=== PATIENT | female | born 1935 | race Caucasian/White ===

== ENCOUNTER 2016-10-21 15:09 | Emergency (ER) | payer MEDICARE, BC ==
[~2016-10-21] VITALS: Ht 157.5 cm; Wt 79.8 kg
[~2016-10-21 15:09] MED LIST: DICL50TA9 PO; GABA800T2 PO; HYDR1TAB PO; LORA1TAB82 PO
[2016-10-21 15:29] LABS: BASOPHILS % (AUTO) 0.4 % (0.0-2.0); DIFF TOTAL % 100 %; EOSINOPHILS # (AUTO) 0.2 /CMM (0.0-0.7); EOSINOPHILS % (AUTO) 1.9 % (0.0-6.0); HEMATOCRIT 39 % (33-45); LYMPHOCYTES # (AUTO) 2.5 /CMM (0.8-4.8); LYMPHOCYTES % (AUTO) 31.6 % (20.0-44.0); MEAN CORPUSCULAR HEMOGLOBIN 30 PG (26.0-33.0); MEAN CORPUSCULAR HGB CONC 33 g/dl (31.0-36.0); MEAN CORPUSCULAR VOLUME 91 fL (82-100); MONOCYTES # (AUTO) 0.6 /CMM (0.1-1.30); MONOCYTES % (AUTO) 7.2 % (2.0-12.0); NEUTROPHILS # (AUTO) 4.6 /CMM (1.8-8.9); NEUTROPHILS % (AUTO) 58.9 % (43.0-81.0); PLATELET COUNT (AUTO) 131 /CMM (150-450); RED BLOOD CELL COUNT(AUTO) 4.34 MIL/uL (4.0-5.2); WHITE BLOOD COUNT (AUTO) 7.9 K/uL (4.3-11.0)
[2016-10-21] MEDS ORDERED: ASPIRIN 81 MG TAB.CHEW PO ONE (15:30)
[2016-10-21] MEDS ORDERED: ASPIRIN 81 MG TAB.CHEW ONE (15:30)
[2016-10-21 15:40] LABS: ANION GAP 13 (5-14); CALCIUM, SERUM 8.9 mg/dL (8.5-10.1); CARBON DIOXIDE 30 mmol/L (21-32); CHLORIDE 103 mmol/L (98-107); CREATININE 0.7 mg/dL (0.6-1.3); GLUCOSE 136 mg/dL (74-106); POTASSIUM 4.4 mmol/L (3.5-5.1); SODIUM SERUM 141 mmol/L (136-145); UREA NITROGEN, BLOOD 13 mg/dL (7-18)
[2016-10-21 15:49] LABS: TROPONIN I < 0.017 ng/mL (0.00-0.056)
[2016-10-21 16:07] LABS: INR 0.99 (0.87-1.13); PROTHROMBIN TIME 10.4 SECS (9.5-12.7)
[2016-10-21 16:34] VITALS: BP 142/81
== END 2016-10-21 16:34 | disposition home or self-care (01) ==
LOC: ER 15:14
DX: J18.9 Pneumonia, unspecified organism (principal); I10 Essential (primary) hypertension; E11.9 Type 2 diabetes mellitus without complications; F41.9 Anxiety disorder, unspecified; M85.80 Other specified disorders of bone density and structure, unspecified site
CPT/HCPCS: 36415; 71010; 80048; 84484; 85025; 85730; 93005 ×2; 99285; A4606; Z7610

== ENCOUNTER 2016-12-12 11:22 | Emergency (ER) | payer MEDICARE, BC ==
[~2016-12-12] VITALS: Ht 124.5 cm; Wt 71.7 kg
[2016-12-12] MEDS ORDERED: IPRATROPIUM NEB FS 0.5 MG/2.5 ML AMPUL.NEB ONE (12:12)
[2016-12-12] MEDS ORDERED: ALBUTEROL FS 2.5 MG/3 ML VIAL.NEB ONE ×2 (12:12→14:39)
[2016-12-12 12:23] LABS: BASOPHILS % (AUTO) 0.3 % (0.0-2.0); DIFF TOTAL % 100 %; EOSINOPHILS # (AUTO) 0.1 /CMM (0.0-0.7); EOSINOPHILS % (AUTO) 1.8 % (0.0-6.0); HEMATOCRIT 40 % (33-45); HEMOGLOBIN 13.1 g/dL (11.5-14.8); LYMPHOCYTES # (AUTO) 1.8 /CMM (0.8-4.8); LYMPHOCYTES % (AUTO) 31.6 % (20.0-44.0); MEAN CORPUSCULAR HEMOGLOBIN 29 PG (26.0-33.0); MEAN CORPUSCULAR HGB CONC 33 g/dl (31.0-36.0); MEAN CORPUSCULAR VOLUME 88 fL (82-100); MONOCYTES # (AUTO) 0.7 /CMM (0.1-1.30); MONOCYTES % (AUTO) 11.5 % (2.0-12.0); NEUTROPHILS # (AUTO) 3.2 /CMM (1.8-8.9); NEUTROPHILS % (AUTO) 54.8 % (43.0-81.0); PLATELET COUNT (AUTO) 117 /CMM (150-450); RED BLOOD CELL COUNT(AUTO) 4.54 MIL/uL (4.0-5.2); WHITE BLOOD COUNT (AUTO) 5.8 K/uL (4.3-11.0)
[2016-12-12] MEDS ORDERED: ALBUTEROL FS 2.5 MG/3 ML VIAL.NEB CONTNEB ONE (12:30)
[2016-12-12] MEDS ORDERED: IPRATROPIUM NEB FS 0.5 MG/2.5 ML AMPUL.NEB NEB ONE (12:30)
[2016-12-12 12:31] LABS: ANION GAP 13 (5-14); CALCIUM, SERUM 8.7 mg/dL (8.5-10.1); CARBON DIOXIDE 28 mmol/L (21-32); CHLORIDE 102 mmol/L (98-107); CREATININE 0.7 mg/dL (0.6-1.3); GLUCOSE 144 mg/dL (74-106); POTASSIUM 4.1 mmol/L (3.5-5.1); SODIUM SERUM 138 mmol/L (136-145); UREA NITROGEN, BLOOD 11 mg/dL (7-18)
[2016-12-12 12:39] LABS: TROPONIN I < 0.017 ng/mL (0.00-0.056)
[2016-12-12 12:43] LABS: ALANINE AMINOTRANSFERASE 33 U/L (12-78); ALBUMIN 3.9 g/dL (3.4-5.0); ASPARTATE AMINOTRANSFERASE 45 U/L (15-37); BILIRUBIN,DIRECT 0.1 mg/dL (0.0-0.2); BILIRUBIN,TOTAL 0.5 mg/dL (0.2-1.0); INDIRECT BILIRUBIN 0.4 mg/dL (0.0-1.1); TOTAL PROTEIN, SERUM 7.9 g/dL (6.4-8.2)
[2016-12-12 13:19] LABS: LACTIC ACID 1.5 mmol/L (0.4-2.0)
[2016-12-12] MEDS ORDERED: methylPREDNISolone SOD SUCC 125 MG/2ML VIAL ONE (14:26)
[2016-12-12] MEDS ORDERED: methylPREDNISolone SOD SUCC 125 MG/2ML VIAL IV ONE (14:30)
[2016-12-12] MEDS ORDERED: ALBUTEROL FS 2.5 MG/3 ML VIAL.NEB NEB ONE (14:30)
[2016-12-12 15:43] VITALS: BP 143/71
== END 2016-12-12 15:45 | disposition home or self-care (01) ==
LOC: ER 11:24
DX: J06.9 Acute upper respiratory infection, unspecified (principal); M19.90 Unspecified osteoarthritis, unspecified site; E11.9 Type 2 diabetes mellitus without complications; F41.9 Anxiety disorder, unspecified; Z95.5 Presence of coronary angioplasty implant and graft; Z99.3 Dependence on wheelchair
CPT/HCPCS: 36415; 71010; 80048; 80076; 83605; 83880; 84484; 85025; 87040 ×2; 87804; 93005; 94640 ×2; 96374; 99285; A4606; J2930; 87400; Z7610

== ENCOUNTER 2016-12-23 17:52 | Emergency (ER) | payer MEDICARE, BC ==
[~2016-12-23] VITALS: Ht 162.6 cm; Wt 68.0 kg
--- NOTE | 2016-12-23 18:20 | NUR ---
bib son for cough and congestion for 1 week, no cp, no respiratory distress, able to ambulate to bed, placed on monitor, will continue to monitor closely .
[2016-12-23 18:29] LABS: BASOPHILS # (AUTO) 0.1 /CMM (0.0-0.2); BASOPHILS % (AUTO) 0.7 % (0.0-2.0); EOSINOPHILS # (AUTO) 0.1 /CMM (0.0-0.7); EOSINOPHILS % (AUTO) 1.2 % (0.0-6.0); HEMATOCRIT 39 % (33-45); LYMPHOCYTES # (AUTO) 2.9 /CMM (0.8-4.8); LYMPHOCYTES % (AUTO) 33.2 % (20.0-44.0); MEAN CORPUSCULAR HEMOGLOBIN 30 PG (26.0-33.0); MEAN CORPUSCULAR HGB CONC 34 g/dl (31.0-36.0); MEAN CORPUSCULAR VOLUME 88 fL (82-100); MONOCYTES # (AUTO) 0.8 /CMM (0.1-1.30); MONOCYTES % (AUTO) 9.6 % (2.0-12.0); NEUTROPHILS # (AUTO) 4.9 /CMM (1.8-8.9); NEUTROPHILS % (AUTO) 55.3 % (43.0-81.0); PLATELET COUNT (AUTO) 142 /CMM (150-450); RDW COEFFICIENT OF VARIATION 13.3 (11.5-15.0); WHITE BLOOD COUNT (AUTO) 8.8 K/uL (4.3-11.0)
[2016-12-23 18:40] LABS: CALCIUM, SERUM 8.4 mg/dL (8.5-10.1); CARBON DIOXIDE 27 mmol/L (21-32); CHLORIDE 105 mmol/L (98-107); CREATININE 0.7 mg/dL (0.6-1.3); GLUCOSE 186 mg/dL (74-106); POTASSIUM 3.9 mmol/L (3.5-5.1); SODIUM SERUM 139 mmol/L (136-145); UREA NITROGEN, BLOOD 11 mg/dL (7-18)
[2016-12-23 18:44] LABS: INR 0.98 (0.87-1.13); PROTHROMBIN TIME 10.2 SECS (9.5-12.7)
[2016-12-23 18:49] LABS: TROPONIN I < 0.017 ng/mL (0.00-0.056)
[2016-12-23 18:56] LABS: ALANINE AMINOTRANSFERASE 26 U/L (12-78); ALBUMIN 3.5 g/dL (3.4-5.0); ALKALINE PHOSPHATASE 119 U/L (46-116); ASPARTATE AMINOTRANSFERASE 28 U/L (15-37); B-TYPE NATRIURETIC PEPTIDE 150 PG/ML (0-125); BILIRUBIN,DIRECT 0.1 mg/dL (0.0-0.2); BILIRUBIN,TOTAL 0.2 mg/dL (0.2-1.0); TOTAL PROTEIN, SERUM 7.3 g/dL (6.4-8.2)
[2016-12-23 18:59] LABS: LACTIC ACID 1.3 mmol/L (0.4-2.0)
--- NOTE | 2016-12-23 19:17 | NUR ---
Assumed care of pt. pt sitting up in bed w/ resp even & unlabored, nad noted. On continuous cardiac monitoring. Awaiting CT.
[2016-12-23] MEDS ORDERED: IV NS 0.9% 250 ML IV ONE (19:44)
[2016-12-23] MEDS ORDERED: IOHEXOL-350 100 ML VIAL IV ONE (19:44)
--- NOTE | 2016-12-23 19:57 | NUR ---
pt sent to CT.
--- NOTE | 2016-12-23 20:09 | NUR ---
pt back fr CT.
--- NOTE | 2016-12-23 20:46 | NUR ---
pt elevated bp, resp even & unlabored, denies any pain w/ nad noted. Dr. Patterson aware of elevated BP, at bedside for update on pt status.
[2016-12-23 20:47] VITALS: BP 172/79
--- NOTE | 2016-12-23 20:56 | NUR ---
IV removed. Catheter intact and site benign. Pressure and 4x4 applied to site. No bleeding noted.Patient discharged to home in stable condition. Written and verbal after care instructions given. Patient verbalizes understanding of instruction.
== END 2016-12-23 20:57 | disposition home or self-care (01) ==
LOC: ER 17:55
DX: I51.7 Cardiomegaly (principal); E11.9 Type 2 diabetes mellitus without complications; F41.9 Anxiety disorder, unspecified
CPT/HCPCS: 36415; 71010; 71275; 80048; 80076; 83605; 83880; 84484; 85025; 85730; 87040 ×2; 87804; 93005; 99285; A4606; J7050; Q9967; 87400; Z7610

== ENCOUNTER 2017-02-19 08:33 | Emergency (ER) | payer MEDICARE, BC ==
[~2017-02-19] VITALS: Ht 154.9 cm; Wt 68.0 kg
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
--- NOTE | 2017-02-19 08:37 | NUR ---
radiology called for finger x-ray
[2017-02-19] MEDS ORDERED: LIDOCAINE HCL/PF 1% 30 ML SDV ONE (08:39)
[2017-02-19] MEDS ORDERED: MORPHINE SULFATE INJ 4 MG/ML DISP.SYRIN ONE (08:39)
--- NOTE | 2017-02-19 08:49 | NUR ---
ALISTAIR AT BS.
[2017-02-19] MEDS ORDERED: TDAP [DIPH/PERTUSSIS/TET] 0.5 ML VIAL IM ONE ×2 (08:52→09:00)
[2017-02-19] MEDS ORDERED: IV SET PRIMARY PUMP SET 1 EA INFUS.SET MC ONE (08:52)
[2017-02-19] MEDS ORDERED: MORPHINE SULFATE INJ 2 MG/ML DISP.SYRIN IM ONE (09:00)
[2017-02-19] MEDS ORDERED: CEFAZOLIN 2 GM in IV D5W 50 ML IV ONE (09:00)
[2017-02-19] MEDS ORDERED: CEFAZOLIN 2 GM in IV D5W 50 ML IV SCH (09:00)
[2017-02-19] MEDS ORDERED: HYDROCODONE/APAP 5/325MG 1 EACH TABLET ONE (09:27)
[2017-02-19] MEDS ORDERED: HYDROCODONE/APAP 5/325MG 1 EACH TABLET PO ONE (10:00)
--- NOTE | 2017-02-19 10:11 | NUR ---
IV removed. Catheter intact and site benign. Pressure and 4x4 applied to site. No bleeding noted.
--- NOTE | 2017-02-19 10:11 | NUR ---
Patient discharged to home in stable condition. Written and verbal after care instructions given. Patient verbalizes understanding of instruction.
[2017-02-19 10:12] VITALS: BP 107/88
== END 2017-02-19 10:12 | disposition home or self-care (01) ==
LOC: ER 08:35
DX: S68.122A Partial traumatic metacarpophalangeal amputation of right middle finger, initial encounter (principal); S62.632A Displaced fracture of distal phalanx of right middle finger, initial encounter for closed fracture; E11.9 Type 2 diabetes mellitus without complications; M19.90 Unspecified osteoarthritis, unspecified site; F41.9 Anxiety disorder, unspecified; Z96.652 Presence of left artificial knee joint; Z99.3 Dependence on wheelchair; Z95.818 Presence of other cardiac implants and grafts; W22.8XXA Striking against or struck by other objects, initial encounter; Y93.89 Activity, other specified; Y92.89 Other specified places as the place of occurrence of the external cause; Y99.8 Other external cause status
CPT/HCPCS: 73130-TC; 90715; A4606; A6403; J0690; J2270; J3490; J7060; Z7610

== ENCOUNTER 2017-02-23 13:41 | Outpatient (CLI) | payer MEDICARE, BC | END 2017-02-23 23:59 | disposition home or self-care (01) | LOC: WOU 13:41 | PROVIDERS: ATTEND Surgery | DX: S68.120D Partial traumatic metacarpophalangeal amputation of right index finger, subsequent encounter (principal); S62.630D Displaced fracture of distal phalanx of right index finger, subsequent encounter for fracture with routine healing; W23.0XXD Caught, crushed, jammed, or pinched between moving objects, subsequent encounter; E11.9 Type 2 diabetes mellitus without complications | CPT/HCPCS: A6402; G0463 ==

== ENCOUNTER 2017-03-02 13:40 | Outpatient (CLI) | payer MEDICARE, BC | END 2017-03-02 23:59 | disposition home health service (06) | LOC: WOU 13:40 | PROVIDERS: ATTEND Surgery | DX: S68.120D Partial traumatic metacarpophalangeal amputation of right index finger, subsequent encounter (principal); S62.630D Displaced fracture of distal phalanx of right index finger, subsequent encounter for fracture with routine healing; W23.0XXD Caught, crushed, jammed, or pinched between moving objects, subsequent encounter; E11.9 Type 2 diabetes mellitus without complications; I96 Gangrene, not elsewhere classified | CPT/HCPCS: 11042; A6402 ×2 ==

== ENCOUNTER 2017-03-09 13:41 | Outpatient (CLI) | payer MEDICARE, BC | END 2017-03-09 23:59 | disposition home health service (06) | LOC: WOU 13:41 | PROVIDERS: ATTEND Surgery | DX: S68.120D Partial traumatic metacarpophalangeal amputation of right index finger, subsequent encounter (principal); S62.630D Displaced fracture of distal phalanx of right index finger, subsequent encounter for fracture with routine healing; W23.0XXD Caught, crushed, jammed, or pinched between moving objects, subsequent encounter; E11.9 Type 2 diabetes mellitus without complications; Z79.4 Long term (current) use of insulin | CPT/HCPCS: A6402; G0463 ==

== ENCOUNTER 2017-03-20 12:50 | Outpatient (CLI) | payer MEDICARE, BC | END 2017-03-20 23:59 | disposition home health service (06) | LOC: WOU 12:50 | PROVIDERS: ATTEND Surgery | DX: S68.120D Partial traumatic metacarpophalangeal amputation of right index finger, subsequent encounter (principal); S62.630D Displaced fracture of distal phalanx of right index finger, subsequent encounter for fracture with routine healing; W23.0XXD Caught, crushed, jammed, or pinched between moving objects, subsequent encounter; E08.40 Diabetes mellitus due to underlying condition with diabetic neuropathy, unspecified; I00-I99 Diseases of the circulatory system; M21.611 Bunion of right foot; M21.612 Bunion of left foot; M20.41 Other hammer toe(s) (acquired), right foot; M20.42 Other hammer toe(s) (acquired), left foot; L84 Corns and callosities; Z96.652 Presence of left artificial knee joint; Z79.4 Long term (current) use of insulin | CPT/HCPCS: A6402; G0463 ==

== ENCOUNTER 2017-03-27 12:28 | Outpatient (CLI) | payer MEDICARE, BC | END 2017-03-27 23:59 | disposition home health service (06) | LOC: WOU 12:28 | PROVIDERS: ATTEND Surgery | DX: M79.605 Pain in left leg (principal); M79.604 Pain in right leg; S68.120D Partial traumatic metacarpophalangeal amputation of right index finger, subsequent encounter; S62.630D Displaced fracture of distal phalanx of right index finger, subsequent encounter for fracture with routine healing; W23.0XXD Caught, crushed, jammed, or pinched between moving objects, subsequent encounter; Z96.652 Presence of left artificial knee joint; E11.9 Type 2 diabetes mellitus without complications; Z95.5 Presence of coronary angioplasty implant and graft | CPT/HCPCS: A6402; G0463 ==

== ENCOUNTER 2017-04-10 12:30 | Outpatient (CLI) | payer MEDICARE, BC | END 2017-04-10 23:59 | disposition home or self-care (01) | LOC: WOU 12:30 | PROVIDERS: ATTEND Surgery | DX: S68.120D Partial traumatic metacarpophalangeal amputation of right index finger, subsequent encounter (principal); W23.0XXD Caught, crushed, jammed, or pinched between moving objects, subsequent encounter; Z96.652 Presence of left artificial knee joint; E11.9 Type 2 diabetes mellitus without complications; Z95.5 Presence of coronary angioplasty implant and graft; M79.671 Pain in right foot | CPT/HCPCS: G0463 ==

== ENCOUNTER 2017-05-23 19:39 | Emergency (ER) | payer MEDICARE, BC ==
[~2017-05-23] VITALS: Ht 144.8 cm; Wt 77.1 kg
[2017-05-23 20:05] VITALS: BP 126/86
--- NOTE | 2017-05-23 20:20 | NUR ---
DR WHITE AT BEDSIDE FOR EVAL.
[2017-05-23] MEDS ORDERED: ACETAMINOPHEN ES 500 MG TABLET PO ONE (20:30)
[2017-05-23] MEDS ORDERED: ACETAMINOPHEN ES 500 MG TABLET ONE (20:38)
== END 2017-05-23 21:21 | disposition home or self-care (01) ==
LOC: ER 19:44
DX: M54.41 Lumbago with sciatica, right side (principal); G89.29 Other chronic pain; F41.9 Anxiety disorder, unspecified; E11.42 Type 2 diabetes mellitus with diabetic polyneuropathy; M19.90 Unspecified osteoarthritis, unspecified site; Z99.3 Dependence on wheelchair; Z98.890 Other specified postprocedural states; Z96.652 Presence of left artificial knee joint
CPT/HCPCS: A4606; Z7610

== ENCOUNTER 2017-09-07 17:43 | Emergency (ER) | payer MEDICARE, BC ==
[~2017-09-07] VITALS: Ht 154.9 cm; Wt 74.8 kg
--- NOTE | 2017-09-07 17:43 | NUR ---
RBIB SON DT RIGHT UPPER ARM BRUISE TO UNKNOWN ETIOLOGY NOTICED YESTERDAY. VSS.
[2017-09-07 18:40] LABS: BASOPHILS # (AUTO) 0.1 /CMM (0.0-0.2); BASOPHILS % (AUTO) 0.6 % (0.0-2.0); EOSINOPHILS # (AUTO) 0.1 /CMM (0.0-0.7); EOSINOPHILS % (AUTO) 1.5 % (0.0-6.0); HEMATOCRIT 39 % (33-45); HEMOGLOBIN 13.2 g/dL (11.5-14.8); LYMPHOCYTES # (AUTO) 2.9 /CMM (0.8-4.8); LYMPHOCYTES % (AUTO) 29.1 % (20.0-44.0); MEAN CORPUSCULAR HEMOGLOBIN 31 PG (26.0-33.0); MEAN CORPUSCULAR HGB CONC 34 g/dl (31.0-36.0); MEAN CORPUSCULAR VOLUME 91 fL (82-100); MONOCYTES # (AUTO) 0.7 /CMM (0.1-1.30); MONOCYTES % (AUTO) 7.3 % (2.0-12.0); NEUTROPHILS # (AUTO) 6.1 /CMM (1.8-8.9); NEUTROPHILS % (AUTO) 61.5 % (43.0-81.0); PLATELET COUNT (AUTO) 148 /CMM (150-450); RDW COEFFICIENT OF VARIATION 13.2 (11.5-15.0); WHITE BLOOD COUNT (AUTO) 9.9 K/uL (4.3-11.0)
[2017-09-07 18:49] LABS: CALCIUM, SERUM 8.9 mg/dL (8.5-10.1); CARBON DIOXIDE 28 mmol/L (21-32); CHLORIDE 104 mmol/L (98-107); CREATININE 0.8 mg/dL (0.6-1.3); GLUCOSE 156 mg/dL (74-106); POTASSIUM 4.2 mmol/L (3.5-5.1); SODIUM SERUM 142 mmol/L (136-145); UREA NITROGEN, BLOOD 17 mg/dL (7-18)
[2017-09-07 18:52] LABS: INR 0.97 (0.87-1.13); PROTHROMBIN TIME 10.1 SECS (9.5-12.7)
[2017-09-07 18:55] LABS: CREATINE KINASE, TOTAL 90 U/L (26-192)
--- NOTE | 2017-09-07 18:58 | NUR ---
REPORT GIVEN TO NENA FOR MIKEY
--- NOTE | 2017-09-07 19:00 | NUR ---
PT REQUESTED A BLANKET AND A PILLOW. PT REC'D BOTH.
--- NOTE | 2017-09-07 19:35 | NUR ---
PT ASKED IF SHE COULD TAKE HER HOME MEDICATION (2MG ATIVAN) IT WAS DUE. DR. RICO OK'D PT TAKING HER MEDICATION.
--- NOTE | 2017-09-07 19:45 | NUR ---
US IS AT THE BEDSIDE.
--- NOTE | 2017-09-07 20:13 | NUR ---
Patient discharged to home in stable condition. Written and verbal after care instructions given. Patient verbalizes understanding of instruction. PT'S SON IS TAKING PT HOME. VSS. PT LEFT VIA WC.
[2017-09-07 20:14] VITALS: BP 126/81
== END 2017-09-07 20:15 | disposition home or self-care (01) ==
LOC: ER 17:47
DX: S40.021A Contusion of right upper arm, initial encounter (principal); E11.9 Type 2 diabetes mellitus without complications; F41.9 Anxiety disorder, unspecified; M19.90 Unspecified osteoarthritis, unspecified site; Z96.652 Presence of left artificial knee joint; Z99.3 Dependence on wheelchair; X58.XXXA Exposure to other specified factors, initial encounter; Y93.89 Activity, other specified; Y92.89 Other specified places as the place of occurrence of the external cause; Y99.8 Other external cause status
CPT/HCPCS: 36415; 73060; 80048; 82550; 85025; 85730; 93971; 99285; A4606; Z7610

== ENCOUNTER 2017-09-18 16:42 | Emergency (ER) | payer MEDICARE, BC ==
[~2017-09-18] VITALS: Ht 162.6 cm; Wt 80.7 kg
[~2017-09-18 16:42] MED LIST changes: +LORA-259 PO; -LORA1TAB82 PO
--- NOTE | 2017-09-18 17:15 | NUR ---
PT CAME IN WITH C/O BODY PAIN AND WEAKNESS. SEEN BY MD FOR EVAL. VSS. AFEBRILE. FAMILY MEMBER AT BS. SAFETY AND COMFORT MEASURES PROVIDED. WILL MONITOR.
--- NOTE | 2017-09-18 17:30 | NUR ---
[employer] AT FOR BLOOD DRAW.
--- NOTE | 2017-09-18 17:40 | NUR ---
ALISTAIR AT BS.
[2017-09-18 17:41] LABS: BASOPHILS % (AUTO) 0.2 % (0.0-2.0); EOSINOPHILS # (AUTO) 0.1 /CMM (0.0-0.7); EOSINOPHILS % (AUTO) 1.3 % (0.0-6.0); HEMATOCRIT 39 % (33-45); HEMOGLOBIN 12.6 g/dL (11.5-14.8); LYMPHOCYTES # (AUTO) 1.5 /CMM (0.8-4.8); LYMPHOCYTES % (AUTO) 20.4 % (20.0-44.0); MEAN CORPUSCULAR HEMOGLOBIN 30 PG (26.0-33.0); MEAN CORPUSCULAR HGB CONC 33 g/dl (31.0-36.0); MEAN CORPUSCULAR VOLUME 91 fL (82-100); MONOCYTES # (AUTO) 0.6 /CMM (0.1-1.30); MONOCYTES % (AUTO) 7.8 % (2.0-12.0); NEUTROPHILS # (AUTO) 5.3 /CMM (1.8-8.9); NEUTROPHILS % (AUTO) 70.3 % (43.0-81.0); PLATELET COUNT (AUTO) 127 /CMM (150-450); RED BLOOD CELL COUNT(AUTO) 4.22 MIL/uL (4.0-5.2); WHITE BLOOD COUNT (AUTO) 7.6 K/uL (4.3-11.0)
[2017-09-18 17:50] LABS: CALCIUM, SERUM 9.5 mg/dL (8.5-10.1); CARBON DIOXIDE 29 mmol/L (21-32); CHLORIDE 101 mmol/L (98-107); CREATININE 0.6 mg/dL (0.6-1.3); GLUCOSE 108 mg/dL (74-106); POTASSIUM 3.9 mmol/L (3.5-5.1); SODIUM SERUM 137 mmol/L (136-145); UREA NITROGEN, BLOOD 14 mg/dL (7-18)
[2017-09-18] MEDS ORDERED: KETOROLAC TROMETHAMINE INJ 30 MG/ML VIAL ONE (18:44)
--- NOTE | 2017-09-18 18:52 | NUR ---
Patient discharged to home in stable condition. Written and verbal after care instructions given. Patient verbalizes understanding of instruction.
[2017-09-18 18:53] VITALS: BP 155/80
[2017-09-18] MEDS ORDERED: KETOROLAC TROMETHAMINE INJ 60 MG/2 ML VIAL IM ONE (19:00)
== END 2017-09-18 18:54 | disposition home or self-care (01) ==
LOC: ER 16:44
DX: J18.9 Pneumonia, unspecified organism (principal); E11.9 Type 2 diabetes mellitus without complications; M19.90 Unspecified osteoarthritis, unspecified site; Z96.652 Presence of left artificial knee joint; F41.9 Anxiety disorder, unspecified; Z99.3 Dependence on wheelchair
CPT/HCPCS: 36415; 71010; 80048; 85025; 87804; 93005; 96372; 99285; A4606; J1885; 87400; Z7610

== ENCOUNTER 2017-09-28 12:05 | Emergency (ER) | payer MEDICARE, BC ==
[~2017-09-28] VITALS: Ht 152.4 cm; Wt 56.7 kg
--- NOTE | 2017-09-28 12:20 | NUR ---
PT BIB SON FOR GENERALIZED BODY PAIN, COUGH, CONGESTION AND ON AND OFF FEVER X 1 WEEK. WAS RECENTLY HERE FOR SAME SYMPTOMS- NO RELIEF FROM MEDS. SEEN BY MD FOR EVAL. PT AAOX3. SON AT . SAFETY AND COMFORT MEASURES PROVIDED. WILL MONITOR.
--- NOTE | 2017-09-28 12:45 | NUR ---
IV ACCESS STARTED. BLOOD DRAWN FOR LABS. MEDICATED ORDERED.
[2017-09-28] MEDS ORDERED: IV NS 0.9% 1,000 ML BAG IV ONE (13:00)
[2017-09-28 13:16] LABS: BASOPHILS # (AUTO) 0.1 /CMM (0.0-0.2); BASOPHILS % (AUTO) 0.7 % (0.0-2.0); EOSINOPHILS # (AUTO) 0.1 /CMM (0.0-0.7); EOSINOPHILS % (AUTO) 1.6 % (0.0-6.0); HEMATOCRIT 40 % (33-45); HEMOGLOBIN 13.5 g/dL (11.5-14.8); LYMPHOCYTES # (AUTO) 2.8 /CMM (0.8-4.8); MEAN CORPUSCULAR HEMOGLOBIN 31 PG (26.0-33.0); MEAN CORPUSCULAR HGB CONC 34 g/dl (31.0-36.0); MEAN CORPUSCULAR VOLUME 91 fL (82-100); MONOCYTES # (AUTO) 0.5 /CMM (0.1-1.30); MONOCYTES % (AUTO) 5.9 % (2.0-12.0); NEUTROPHILS # (AUTO) 4.6 /CMM (1.8-8.9); NEUTROPHILS % (AUTO) 57.8 % (43.0-81.0); PLATELET COUNT (AUTO) 165 /CMM (150-450); RDW COEFFICIENT OF VARIATION 13.2 (11.5-15.0); RED BLOOD CELL COUNT(AUTO) 4.39 MIL/uL (4.0-5.2); WHITE BLOOD COUNT (AUTO) 8.1 K/uL (4.3-11.0)
[2017-09-28 13:33] LABS: CALCIUM, SERUM 9.1 mg/dL (8.5-10.1); CARBON DIOXIDE 27 mmol/L (21-32); CHLORIDE 104 mmol/L (98-107); CREATININE 0.6 mg/dL (0.6-1.3); GLUCOSE 163 mg/dL (74-106); POTASSIUM 3.9 mmol/L (3.5-5.1); SODIUM SERUM 139 mmol/L (136-145); UREA NITROGEN, BLOOD 12 mg/dL (7-18)
[2017-09-28 13:45] LABS: TROPONIN I < 0.017 ng/mL (0.00-0.056)
[2017-09-28 13:48] LABS: B-TYPE NATRIURETIC PEPTIDE 162 PG/ML (0-125)
--- NOTE | 2017-09-28 14:56 | NUR ---
IV removed. Catheter intact and site benign. Pressure and 4x4 applied to site. No bleeding noted.
[2017-09-28 14:57] VITALS: BP 118/71
== END 2017-09-28 15:01 | disposition home or self-care (01) ==
LOC: ER 12:08
DX: J40 Bronchitis, not specified as acute or chronic (principal); E11.9 Type 2 diabetes mellitus without complications; M19.90 Unspecified osteoarthritis, unspecified site; F41.9 Anxiety disorder, unspecified; Z96.652 Presence of left artificial knee joint
CPT/HCPCS: 36415; 71010; 80048; 83605; 83880; 84484; 85025; 87040 ×2; 87804; 93005; 96360; 99285; A4606; 87400; Z7610

== ENCOUNTER 2018-04-20 13:59 | Emergency (ER) | payer MEDICARE, BC ==
[~2018-04-20] VITALS: Ht 165.1 cm; Wt 68.0 kg
--- NOTE | 2018-04-20 15:15 | NUR ---
PT TO ER BED 08. HERE FOR SORE THROAT AND GENERALIZED BODY ACHES X 3 DAYS NOW. COUGH WORST AT NIGHT TIME. GOWNED AND PLACED ON MONITOR. AWAITING MD ANGEL.
--- NOTE | 2018-04-20 15:42 | NUR ---
DR MENDES AT BEDSIDE FOR EVAL.
--- NOTE | 2018-04-20 15:50 | NUR ---
IV LINE STARTED BLOOD DRAWN AND SENTTO LAB.
[2018-04-20 15:55] LABS: BASOPHILS % (AUTO) 0.2 % (0.0-2.0); EOSINOPHILS % (AUTO) 1.5 % (0.0-6.0); HEMATOCRIT 37 % (33-45); HEMOGLOBIN 12.5 g/dL (11.5-14.8); LYMPHOCYTES # (AUTO) 2.4 /CMM (0.8-4.8); LYMPHOCYTES % (AUTO) 19.5 % (20.0-44.0); MEAN CORPUSCULAR HEMOGLOBIN 31 PG (26.0-33.0); MEAN CORPUSCULAR HGB CONC 34 g/dl (31.0-36.0); MEAN CORPUSCULAR VOLUME 90 fL (82-100); MONOCYTES # (AUTO) 1.2 /CMM (0.1-1.30); MONOCYTES % (AUTO) 9.6 % (2.0-12.0); NEUTROPHILS # (AUTO) 8.4 /CMM (1.8-8.9); NEUTROPHILS % (AUTO) 69.2 % (43.0-81.0); PLATELET COUNT (AUTO) 123 /CMM (150-450); RDW COEFFICIENT OF VARIATION 13.3 (11.5-15.0); RED BLOOD CELL COUNT(AUTO) 4.07 MIL/uL (4.0-5.2); WHITE BLOOD COUNT (AUTO) 12.2 K/uL (4.3-11.0)
[2018-04-20] MEDS ORDERED: IV NS 0.9% 500 ML BAG IV ONE (16:00)
[2018-04-20] MEDS ORDERED: ALBUTEROL FS 2.5 MG/3 ML VIAL.NEB NEB ONE (16:00)
[2018-04-20] MEDS ORDERED: ONDANSETRON HCL/PF 4 MG/2 ML VIAL IVP ONE (16:00)
[2018-04-20] MEDS ORDERED: IPRATROPIUM NEB FS 0.5 MG/2.5 ML AMPUL.NEB NEB ONE (16:00)
[2018-04-20] MEDS ORDERED: MORPHINE SULFATE INJ 2 MG/ML DISP.SYRIN IV ONE (16:00)
[2018-04-20 16:02] LABS: CALCIUM, SERUM 8.6 mg/dL (8.5-10.1); CARBON DIOXIDE 31 mmol/L (21-32); CHLORIDE 102 mmol/L (98-107); CREATININE 0.8 mg/dL (0.6-1.3); GLUCOSE 199 mg/dL (74-106); POTASSIUM 4.1 mmol/L (3.5-5.1); SODIUM SERUM 135 mmol/L (136-145); UREA NITROGEN, BLOOD 15 mg/dL (7-18)
[2018-04-20] MEDS ORDERED: ONDANSETRON HCL/PF 4 MG/2 ML VIAL ONE (16:03)
[2018-04-20] MEDS ORDERED: MORPHINE SULFATE INJ 4 MG/ML DISP.SYRIN ONE (16:03)
[2018-04-20] MEDS ORDERED: ALBUTEROL FS 2.5 MG/3 ML VIAL.NEB ONE (16:27)
[2018-04-20] MEDS ORDERED: IPRATROPIUM NEB FS 0.5 MG/2.5 ML AMPUL.NEB ONE (16:27)
[2018-04-20 17:32] VITALS: BP 132/50
--- NOTE | 2018-04-20 17:32 | NUR ---
Patient discharged to home in stable condition. Written and verbal after care instructions given. Patient verbalizes understanding of instruction.IV removed. Catheter intact and site benign. Pressure and 4x4 applied to site. No bleeding noted.
== END 2018-04-20 17:33 | disposition home or self-care (01) ==
LOC: ER 14:00
DX: J20.9 Acute bronchitis, unspecified (principal); J03.90 Acute tonsillitis, unspecified; E11.9 Type 2 diabetes mellitus without complications; F41.9 Anxiety disorder, unspecified; Z96.652 Presence of left artificial knee joint; Z95.5 Presence of coronary angioplasty implant and graft
CPT/HCPCS: 36415; 71045; 80048; 85025; 94640; 96374; 96375; 99285; A4606; J2270; J2405; J7040; Z7610

== ENCOUNTER 2018-06-27 11:52 | Inpatient (IN) | payer MEDICARE, BC ==
[~2018-06-27] VITALS: Ht 144.8 cm; Wt 79.8 kg
--- NOTE | 2018-06-27 12:00 | NUR ---
pt moaning/groaning and asking/wanting for pain meds "marceina para dolor" Dr Bernstein at bedside medicated as per order
[2018-06-27] MEDS ORDERED: ONDANSETRON HCL/PF 4 MG/2 ML VIAL ONE (12:28)
[2018-06-27] MEDS ORDERED: HYDROMORPHONE 1 MG/1 ML DISP.SYRIN ONE (12:29)
[2018-06-27] MEDS ORDERED: HYDROMORPHONE INJ 0.5 MG/0.5 ML SYRINGE IV ONE (12:30)
[2018-06-27] MEDS ORDERED: ONDANSETRON HCL/PF 4 MG/2 ML VIAL IV ONE (12:30)
[2018-06-27 12:36] LABS: BASOPHILS % (AUTO) 0.4 % (0.0-2.0); EOSINOPHILS % (AUTO) 1.5 % (0.0-6.0); HEMATOCRIT 40 % (33-45); HEMOGLOBIN 12.9 g/dL (11.5-14.8); LYMPHOCYTES # (AUTO) 2.2 /CMM (0.8-4.8); LYMPHOCYTES % (AUTO) 24.9 % (20.0-44.0); MEAN CORPUSCULAR HGB CONC 33 g/dl (31.0-36.0); MEAN CORPUSCULAR VOLUME 90 fL (82-100); MONOCYTES # (AUTO) 0.6 /CMM (0.1-1.30); MONOCYTES % (AUTO) 6.7 % (2.0-12.0); NEUTROPHILS # (AUTO) 5.9 /CMM (1.8-8.9); NEUTROPHILS % (AUTO) 66.5 % (43.0-81.0); PLATELET COUNT (AUTO) 162 /CMM (150-450); RDW COEFFICIENT OF VARIATION 14.6 (11.5-15.0); RED BLOOD CELL COUNT(AUTO) 4.39 MIL/uL (4.0-5.2); WHITE BLOOD COUNT (AUTO) 8.8 K/uL (4.3-11.0)
--- NOTE | 2018-06-27 12:44 | NUR ---
CALLED NURSING [facility] AND REQUESTED A MED SURG BED FOR THIS PT.
[2018-06-27 12:47] LABS: CALCIUM, SERUM 8.9 mg/dL (8.5-10.1); CARBON DIOXIDE 31 mmol/L (21-32); CHLORIDE 100 mmol/L (98-107); CREATININE 0.8 mg/dL (0.6-1.3); GLUCOSE 221 mg/dL (74-106); POTASSIUM 4.3 mmol/L (3.5-5.1); SODIUM SERUM 137 mmol/L (136-145); UREA NITROGEN, BLOOD 16 mg/dL (7-18)
--- NOTE | 2018-06-27 12:57 | NUR ---
CALLED [facility] FOR PANEL CALL AND A PAGE WAS SENT TO TED KNOWLES DNP
[2018-06-27] MEDS ORDERED: CLOP75TA15 PO (12:59)
[2018-06-27] MEDS ORDERED: OLME20TA23 PO (12:59)
[2018-06-27] MEDS ORDERED: INSU100I24 SQ (12:59)
[2018-06-27] MEDS ORDERED: GLIM1TAB2 PO (12:59)
[2018-06-27] MEDS ORDERED: LINA290C PO (12:59)
[2018-06-27] MEDS ORDERED: LORA2TAB PO (12:59)
[2018-06-27] MEDS ORDERED: ROSU5TAB PO (12:59)
[2018-06-27] MEDS ORDERED: LINA5TAB PO (12:59)
[2018-06-27] MEDS ORDERED: METF-442 PO (12:59)
[2018-06-27] MEDS ORDERED: DESV50TA PO (12:59)
[2018-06-27] MEDS ORDERED: GABA-532 PO (12:59)
[2018-06-27] MEDS ORDERED: OXYC-454 PO (12:59)
--- NOTE | 2018-06-27 13:29 | NUR ---
Pt dozing on/off NO obvious distress awaiting bed assignment from MS both pt/family updated
[2018-06-27] MEDS ORDERED: MAGNESIUM HYDROXIDE 30 ML UDC PO PRN (13:30)
[2018-06-27] MEDS ORDERED: HYDROCODONE/APAP 5/325MG 1 EACH TABLET PO PRN (13:30)
[2018-06-27] MEDS ORDERED: MAG HYDROX/AL HYDROX/SIMETH 30 ML UDC PO PRN (13:30)
[2018-06-27] MEDS ORDERED: ONDANSETRON HCL/PF 4 MG/2 ML VIAL IVP PRN (13:30)
[2018-06-27] MEDS ORDERED: MORPHINE SULFATE INJ 2 MG/ML DISP.SYRIN IV PRN (13:30)
[2018-06-27] MEDS ORDERED: Z GUARD REMEDY 2 OZ OINT TP PRN (13:30)
[2018-06-27] MEDS ORDERED: ACETAMINOPHEN 325 MG TABLET PO PRN (13:30)
--- NOTE | 2018-06-27 13:37 | NUR ---
PT IS ASSIGNED TO MED SURG RM#: 202, Dx: INTRACTABLE BACK PAIN, AND ACCEPTING: TED KNOWLES DNP.
--- NOTE | 2018-06-27 13:59 | NUR ---
Nurse Knowledge exchange w/RN-Yamel Pt going to room 202. NO acute changes No obvious distress transported/EMT
[2018-06-27 14:08] LABS: APPEARANCE,URINE Clear (CLEAR); BILIRUBIN,URINE Negative (NEGATIVE); BLOOD, URINE Negative Ery/uL (NEGATIVE); COLOR,URINE Yellow (YELLOW); KETONES,URINE Negative (NEGATIVE); LEUKOCYTE ESTERASE ,URINE Negative (NEGATIVE); NITRITE, URINE Negative (NEGATIVE); PH,URINE 5.5 (5.0-8.0); PROTEIN,URINE Negative (NEGATIVE); UGLUCOSE Negative (NEGATIVE); UROBILINOGEN,URINE 0.2 EU/dL (0.2)
[2018-06-27 14:30] VITALS: BP_SYST 130; BP_SYST 155; BP_DIAS 72; BP_DIAS 74
--- NOTE | 2018-06-27 14:30 | NUR ---
MS RN NOTES RECEIVED PATIENT FROM ER IN WHEELCHAIR. PATIENT ALERT ORIENTED X3 NIGERIAN SPEAKING. NO SOB OR ACUTE DISTRESS NOTED. PATIENT REPORT PAIN HAS BEEN RELIVED WHEN ER ADMINISTERED PAIN MEDICATION. PATIENT ORIENTED TO ROOM. PLACED COMFORTABLE IN BED. CALL LIGHT WITHIN REACH. PATIENT SKIN IS INTACT. HAS FAMILY AT BEDSIDE. LIVES AT HOME. REPORTS HAVING CHRONIC PAIN WHICH HAS INCREASED WITHIN 2 DAYS. PATIENT STATES HAVING AN MRI 1 WEEK AGO, ALSO STATES SHE HAD AN ANOINTMENT WITH PAIN SPECIALIST TOMORROW. PHONE NUMBER OBTAINED WILL CALL FOR MRI RESULTS. WILL CONTINUE TO MONITOR.
[2018-06-27] MEDS ORDERED: DEXTROSE 50%-WATER 50 ML DISP.SYRIN IV PRN (15:30)
--- NOTE | 2018-06-27 15:36 | NUR ---
MS RN NOTES SPOKE TO JANET FROM DR. SANTIAGO OFFICE PHONE NUMBER [phone] REQUESTING MRI RESULTS STATES WILL FAX OVER PROVIDED FAX NUMBER.
[2018-06-27 16:00] VITALS: BP 124/71
[2018-06-27] MEDS: GABAPENTIN 100 MG CAPSULE PO SCH (16:25)
[2018-06-27] MEDS: GLIMEPIRIDE 1 MG TABLET PO SCH (16:26)
[2018-06-27] MEDS: BLOOD SUGAR DIAGNOSTIC 1 EACH STRIP IN SCH ×2 (16:39→21:28)
[2018-06-27] MEDS: INSULIN REGULAR, HUMAN 100 UNIT/ML 3 ML VIAL SQ PRN ×2 (16:39→21:43)
--- NOTE | 2018-06-27 19:34 | NUR ---
RN OPENING NOTE; RECEIVED PT IN BED AWAKE AND ALERT WITH FAMILY AT THE BED SIDE. BREATHING EVENLY. NO SOB. NAD. SKIN WARM AND DRY. NO C/O PAIN OR DISCOMFORT AT THIS TIME. NO S/S PF HYPO OR HYPERGLYCEMIA. NEEDS ATTENDED. BED LOW LOCKED. CALL LIGHT WITHIN REACH. WILL CONT TO MONITOR.
[2018-06-27 20:00] VITALS: BP 149/71
[2018-06-27 20:12] VITALS: BP 149/71
--- NOTE | 2018-06-27 20:45 | NUR ---
PT'S SON REPORTED SHE IS TAKING ATIVAN 2MG PO EVERY NIGHT TO HELP HER SLEEP AND REQUESTING TO RESUME THE MEDICATION. THE SON WAS INFORMED ABOUT THE EXISTING ORDER FOR RESTORIL BUT HE REFUSED AND STATED HE'S NOT COMFORTABLE TAKING THE NEW MEDICATION. PAGED DR. SINCLAIR AND INFORMED HIM ABOUT THE SON'S REQUEST. WITH AN ORDER FOR ATIVAN 2MG PO HS PRN. NOTED. FAMILY MADE AWARE,
[2018-06-27] MEDS ORDERED: LORAZEPAM 1 MG TABLET PO PRN (21:00)
[2018-06-27] MEDS ORDERED: TEMAZEPAM 15 MG CAPSULE PO PRN (22:00)
[2018-06-27] MEDS ORDERED: ATORVASTATIN 10 MG TABLET PO SCH (22:00)
[2018-06-27] MEDS ORDERED: INSULIN GLARGINE, 100 UNIT/ML CARTRIDGE SQ SCH (22:00)
--- NOTE | 2018-06-28 04:57 | NUR ---
NORCO GIVEN ORDERED FOR C/O BACK PAIN. WILL CONT TO MONITOR,
--- NOTE | 2018-06-28 06:15 | NUR ---
PT IN BED DOZING INTERMITTENTLY. BREATHING EVENLY. NO SOB. NO ACUTE EVENT DURING THE NIGHT. NEEDS ATTENDED. PAIN UNDER CONTROL WITH PAIN MEDICATION. NEEDS ATTENDED. BED LOW LOCKED. CALL LIGHT WITHIN REACH. WILL CONT TO MONITOR ,AND WILL ENDORSE TO AM SHIFT FOR MIKEY.
[2018-06-28] MEDS: BLOOD SUGAR DIAGNOSTIC 1 EACH STRIP IN SCH (06:51)
[2018-06-28] MEDS: INSULIN REGULAR, HUMAN 100 UNIT/ML 3 ML VIAL SQ PRN (06:53)
--- NOTE | 2018-06-28 07:23 | NUR ---
MORPHINE ALONG WITH THE ZOFRAN GIVEN ORDERED FOR C/O SEVERE BACK PAIN AND NAUSEA . WILL CONT TO MONITOR AND WILL REPORT TO DAY SHIFT FOR MIKEY.
[2018-06-28 07:26] LABS: CALCIUM, SERUM 8.9 mg/dL (8.5-10.1); CARBON DIOXIDE 29 mmol/L (21-32); CHLORIDE 101 mmol/L (98-107); CREATININE 0.8 mg/dL (0.6-1.3); GLUCOSE 177 mg/dL (74-106); MAGNESIUM 1.9 mg/dL (1.8-2.4); PHOSPHORUS 3.7 mg/dL (2.5-4.9); POTASSIUM 3.9 mmol/L (3.5-5.1); SODIUM SERUM 138 mmol/L (136-145); UREA NITROGEN, BLOOD 12 mg/dL (7-18)
[2018-06-28] MEDS ORDERED: PANTOPRAZOLE 40 MG TABLET.DR PO SCH (07:30)
[2018-06-28] MEDS ORDERED: MORPHINE SULFATE INJ 4 MG/ML DISP.SYRIN IV PRN (07:30)
[2018-06-28 07:31] LABS: CHOLESTEROL 191 mg/dL (<200); HDL CHOLESTEROL 42 mg/dL (40-60); LDL 134 mg/dL (0-99); TRIGLYCERIDES 168 mg/dL (30-150)
[2018-06-28 07:53] LABS: HEMATOCRIT 37 % (33-45); HEMOGLOBIN 12.4 g/dL (11.5-14.8); LYMPHOCYTES % (AUTO) 30.4 % (20.0-44.0); MEAN CORPUSCULAR HGB CONC 33 g/dl (31.0-36.0); MEAN CORPUSCULAR VOLUME 92 fL (82-100); MONOCYTES % (AUTO) 8.7 % (2.0-12.0); NEUTROPHILS % (AUTO) 59.2 % (43.0-81.0); PLATELET COUNT (AUTO) 135 /CMM (150-450); RDW COEFFICIENT OF VARIATION 15.6 (11.5-15.0); RED BLOOD CELL COUNT(AUTO) 4.09 MIL/uL (4.0-5.2); WHITE BLOOD COUNT (AUTO) 7.6 K/uL (4.3-11.0)
[2018-06-28 07:54] LABS: BASOPHILS % (AUTO) 0.3 % (0.0-2.0); EOSINOPHILS % (AUTO) 1.4 % (0.0-6.0); LYMPHOCYTES # (AUTO) 2.3 /CMM (0.8-4.8); MONOCYTES # (AUTO) 0.7 /CMM (0.1-1.30); NEUTROPHILS # (AUTO) 4.5 /CMM (1.8-8.9)
--- NOTE | 2018-06-28 08:00 | NUR ---
MS 2 RN AM NOTES RECEIVED PT IN BED AWAKE AND ALERT WITH FAMILY AT THE BED SIDE. BREATHING EVENLY. NO SOB. NAD. SKIN WARM AND DRY. NO C/O PAIN OR DISCOMFORT AT THIS TIME. NO S/S OF HYPO OR HYPERGLYCEMIA.PENDING DISCHARGE.WAS SEEN BY ERASMO JEAN WITH ORDERS FOR DISCHARGE.PT HAS F/U APPT WITH DR FULTON(PAIN MGT ) BED IS LOW AND LOCKED. WITH BRP WITH ASSIST.SON AY BEDSIDE.CALL LIGHT WITHIN REACH. WILL CONT TO MONITOR.
[2018-06-28 08:22] VITALS: BP 115/58
[2018-06-28] MEDS: GABAPENTIN 100 MG CAPSULE PO SCH (08:22)
[2018-06-28] MEDS: GLIMEPIRIDE 1 MG TABLET PO SCH (08:22)
[2018-06-28] MEDS ORDERED: LOSARTAN POTASSIUM 50 MG TABLET PO SCH (09:00)
[2018-06-28] MEDS ORDERED: LINAGLIPTIN 5 MG TABLET PO SCH (09:00)
[2018-06-28] MEDS ORDERED: CLOPIDOGREL BISULFATE 75 MG TABLET PO SCH (09:00)
[2018-06-28] MEDS ORDERED: Medication Not On Formulary EA (Rosuvastatin Calcium (Crestor) 5 MG) PO SCH (09:00)
--- NOTE | 2018-06-28 09:07 | NUR ---
DISCHARGE INSTRUCTIONS,HEALTH TEACHING AND MED RECONCILIATION GIVEN TO THE PT.REMOVED IV H/L TO RFA WITH NO BLEEDING NOTED.INSTRUCTED TO APPLY PRESSURE IN THE AREA TO STOP THE BLEEDING.PT COMPLIANT.PT/FAMILY IN A PEREZ TO SEE DR [facility] FOR THEIR F/U APPT THIS MORNING.DISCHARGED HOME WITH STABLE V/S.
== END 2018-06-28 09:07 | disposition home or self-care (01) | DRG 547 ==
LOC: ER 11:54 → MEDSG2 14:06
PROVIDERS: ADMIT Hospitalist; ATTEND Hospitalist
DX: M48.8X6 Other specified spondylopathies, lumbar region (principal); M54.9 Dorsalgia, unspecified; E66.01 Morbid (severe) obesity due to excess calories; Z68.38 Body mass index [BMI] 38.0-38.9, adult; G89.29 Other chronic pain; M19.90 Unspecified osteoarthritis, unspecified site; E11.9 Type 2 diabetes mellitus without complications; Z95.5 Presence of coronary angioplasty implant and graft; Z99.3 Dependence on wheelchair; Z96.652 Presence of left artificial knee joint; I25.10 Atherosclerotic heart disease of native coronary artery without angina pectoris; E78.5 Hyperlipidemia, unspecified; F41.9 Anxiety disorder, unspecified
CPT/HCPCS: 36415; 80048-TC; 80061-TC; 81000-TC; 82962-TC; 83735-TC; 84100-TC; 85025-TC; 87081-TC; A4606; J1170; J1815; J2270; J2405; Z7610

== ENCOUNTER 2019-01-12 16:41 | Emergency (ER) | payer MEDICARE, BC ==
[~2019-01-12] VITALS: Ht 152.4 cm; Wt 78.0 kg
[~2019-01-12 16:41] MED LIST changes: +CLOP75TA15 PO; +DESV50TA PO; -DICL50TA9 PO; +GABA-532 PO; -GABA800T2 PO; +GLIM1TAB2 PO; -HYDR1TAB PO; +INSU100I24 SQ; +LINA290C PO; +LINA5TAB PO; -LORA-259 PO; +LORA2TAB PO; +METF-442 PO; +OLME20TA23 PO; +OXYC-454 PO; +ROSU5TAB PO
[2019-01-12 16:58] VITALS: BP 140/83
[2019-01-12] MEDS ORDERED: ALBUTEROL FS 2.5 MG/3 ML VIAL.NEB NEB ONE (17:30)
[2019-01-12] MEDS ORDERED: IPRATROPIUM NEB FS 0.5 MG/2.5 ML AMPUL.NEB NEB ONE (17:30)
[2019-01-12] MEDS ORDERED: IPRATROPIUM NEB FS 0.5 MG/2.5 ML AMPUL.NEB ONE (17:49)
[2019-01-12] MEDS ORDERED: ALBUTEROL FS 2.5 MG/3 ML VIAL.NEB ONE (17:49)
--- NOTE | 2019-01-12 18:02 | NUR ---
RT AT BEDSIDE FOR BREATHING TREATMENT.
--- NOTE | 2019-01-12 18:42 | NUR ---
Patient discharged to home in stable condition. Written and verbal after care instructions given. Patient verbalizes understanding of instruction.
== END 2019-01-12 18:43 | disposition home or self-care (01) ==
LOC: ER 16:43
DX: J20.9 Acute bronchitis, unspecified (principal); E11.9 Type 2 diabetes mellitus without complications; F41.9 Anxiety disorder, unspecified; Z98.890 Other specified postprocedural states; Z96.652 Presence of left artificial knee joint; Z95.5 Presence of coronary angioplasty implant and graft; Z79.4 Long term (current) use of insulin

== ENCOUNTER 2019-07-27 17:12 | Emergency (ER) | payer MEDICARE, BC ==
[~2019-07-27] VITALS: Ht 152.4 cm; Wt 77.1 kg
[~2019-07-27 17:12] MED LIST changes: -GLIM1TAB2 PO; +GLIM1TAB3 PO
--- NOTE | 2019-07-27 17:20 | NUR ---
PT BIB SON C/O L SIDED ABDOMINAL PAIN 07/11 . PT AAOX4, VSS, BREATHING EVEN AND UNLABORED W/ NO ACUTE DISTRESS NOTED. [place] N/V AT THIS TIME. PT CONNECTED TO THE MONITOR.
--- NOTE | 2019-07-27 18:04 | NUR ---
BLOOD DRAWN AND SENT TO LAB
[2019-07-27 18:05] LABS: BASOPHILS # (AUTO) 0.1 /CMM (0.0-0.2); BASOPHILS % (AUTO) 0.9 % (0.0-2.0); HEMATOCRIT 40 % (33-45); HEMOGLOBIN 13.1 g/dL (11.5-14.8); LYMPHOCYTES # (AUTO) 1.1 /CMM (0.8-4.8); LYMPHOCYTES % (AUTO) 10.9 % (20.0-44.0); MEAN CORPUSCULAR HGB CONC 33 g/dl (31.0-36.0); MEAN CORPUSCULAR VOLUME 91 fL (82-100); MONOCYTES # (AUTO) 0.6 /CMM (0.1-1.30); MONOCYTES % (AUTO) 5.5 % (2.0-12.0); NEUTROPHILS # (AUTO) 8.3 /CMM (1.8-8.9); NEUTROPHILS % (AUTO) 81.7 % (43.0-81.0); PLATELET COUNT (AUTO) 122 /CMM (150-450); RED BLOOD CELL COUNT(AUTO) 4.38 MIL/uL (4.0-5.2); WHITE BLOOD COUNT (AUTO) 10.1 K/uL (4.3-11.0)
[2019-07-27] MEDS ORDERED: ONDANSETRON HCL/PF 4 MG/2 ML VIAL ONE (18:12)
[2019-07-27] MEDS ORDERED: ACETAMINOPHEN 325 MG TABLET ONE (18:12)
--- NOTE | 2019-07-27 18:14 | NUR ---
PT SENT TO CT
[2019-07-27 18:16] LABS: CALCIUM, SERUM 8.4 mg/dL (8.5-10.1); CREATININE 0.7 mg/dL (0.6-1.3); POTASSIUM 4.2 mmol/L (3.5-5.1)
--- NOTE | 2019-07-27 18:24 | NUR ---
PT BACK FROM CT
[2019-07-27 18:30] LABS: ALBUMIN 3.9 g/dL (3.4-5.0); BILIRUBIN,DIRECT 0.2 mg/dL (0.0-0.2); BILIRUBIN,TOTAL 0.6 mg/dL (0.2-1.0); TOTAL PROTEIN, SERUM 7.8 g/dL (6.4-8.2)
[2019-07-27] MEDS ORDERED: ONDANSETRON HCL/PF 4 MG/2 ML VIAL IVP ONE (18:30)
[2019-07-27] MEDS ORDERED: ACETAMINOPHEN 325 MG TABLET PO ONE (18:30)
[2019-07-27] MEDS ORDERED: IV NS 0.9% 1,000 ML BAG IV ONE (18:30)
--- NOTE | 2019-07-27 19:29 | NUR ---
REPORT GIVEN TO ANNABEL LÓPEZ
[2019-07-27] MEDS ORDERED: KETOROLAC TROMETHAMINE INJ 30 MG/ML VIAL IV ONE (19:30)
--- NOTE | 2019-07-27 19:31 | NUR ---
REPORT RECIEVED FROM ANNABEL PARNELL
[2019-07-27 19:40] LABS: APPEARANCE,URINE Clear (CLEAR); BILIRUBIN,URINE Negative (NEGATIVE); BLOOD, URINE Negative Ery/uL (NEGATIVE); COLOR,URINE Yellow (YELLOW); KETONES,URINE Negative (NEGATIVE); LEUKOCYTE ESTERASE ,URINE Trace (NEGATIVE); NITRITE, URINE Negative (NEGATIVE); PH,URINE 7.5 (5.0-8.0); PROTEIN,URINE Negative (NEGATIVE); UGLUCOSE Negative (NEGATIVE); UROBILINOGEN,URINE 0.2 EU/dL (0.2)
[2019-07-27 19:52] LABS: BACTERIA,URINE None seen /HPF (None Seen); RBC,URINE 0-2 /HPF (0-2); SQUAMOUS EPITHELIAL CELL,UR Few /HPF (None Seen)
[2019-07-27 20:06] VITALS: BP 126/87
== END 2019-07-27 20:07 | disposition home or self-care (01) ==
LOC: ER 17:14
DX: R10.32 Left lower quadrant pain (principal); R42 Dizziness and giddiness; R11.2 Nausea with vomiting, unspecified; E11.9 Type 2 diabetes mellitus without complications; F41.9 Anxiety disorder, unspecified; M19.90 Unspecified osteoarthritis, unspecified site; Z95.818 Presence of other cardiac implants and grafts; Z98.890 Other specified postprocedural states; Z79.4 Long term (current) use of insulin; Z79.899 Other long term (current) drug therapy
CPT/HCPCS: 36415; 74176; 80048; 80076; 81001; 83690; 85025; 96361; 96374; 99284; J2405; J7030; 81000-TC

== ENCOUNTER 2019-08-03 13:59 | Emergency (ER) | payer MEDICARE, BC ==
[~2019-08-03] VITALS: Ht 162.6 cm; Wt 90.7 kg
[~2019-08-03 13:59] MED LIST changes: +GLIM1TAB2 PO; -GLIM1TAB3 PO
--- NOTE | 2019-08-03 14:11 | NUR ---
CALLED IN WAITING ROOM, PATIENT IN RESTROOM.
[2019-08-03] MEDS ORDERED: METOCLOPRAMIDE HCL 10 MG/2 ML VIAL IV ONE (14:30)
[2019-08-03] MEDS ORDERED: MORPHINE SULFATE INJ 2 MG/ML DISP.SYRIN IV ONE (14:30)
[2019-08-03] MEDS ORDERED: IV NS 0.9% 1,000 ML BAG IV ONE (14:30)
[2019-08-03 14:40] LABS: BASOPHILS # (AUTO) 0.1 /CMM (0.0-0.2); BASOPHILS % (AUTO) 0.6 % (0.0-2.0); EOSINOPHILS % (AUTO) 2.3 % (0.0-6.0); HEMATOCRIT 39 % (33-45); HEMOGLOBIN 12.9 g/dL (11.5-14.8); LYMPHOCYTES # (AUTO) 2.7 /CMM (0.8-4.8); LYMPHOCYTES % (AUTO) 33.4 % (20.0-44.0); MEAN CORPUSCULAR HGB CONC 33 g/dl (31.0-36.0); MEAN CORPUSCULAR VOLUME 92 fL (82-100); MONOCYTES # (AUTO) 0.6 /CMM (0.1-1.30); MONOCYTES % (AUTO) 7.4 % (2.0-12.0); NEUTROPHILS # (AUTO) 4.5 /CMM (1.8-8.9); NEUTROPHILS % (AUTO) 56.3 % (43.0-81.0); PLATELET COUNT (AUTO) 138 /CMM (150-450); RED BLOOD CELL COUNT(AUTO) 4.27 MIL/uL (4.0-5.2); WHITE BLOOD COUNT (AUTO) 8.1 K/uL (4.3-11.0)
[2019-08-03 14:46] LABS: CALCIUM, SERUM 8.8 mg/dL (8.5-10.1); CREATININE 0.8 mg/dL (0.6-1.3); POTASSIUM 4.5 mmol/L (3.5-5.1)
[2019-08-03] MEDS ORDERED: MORPHINE SULFATE INJ 4 MG/ML DISP.SYRIN ONE (14:47)
[2019-08-03] MEDS ORDERED: METOCLOPRAMIDE HCL 10 MG/2 ML VIAL ONE (14:48)
[2019-08-03 14:52] LABS: BILIRUBIN,DIRECT 0.1 mg/dL (0.0-0.2); BILIRUBIN,TOTAL 0.3 mg/dL (0.2-1.0); TOTAL PROTEIN, SERUM 7.7 g/dL (6.4-8.2)
[2019-08-03] MEDS ORDERED: IV NS 0.9% 250 ML IV ONE (15:01)
[2019-08-03] MEDS ORDERED: IOHEXOL-300 100 ML VIAL IV ONE (15:01)
[2019-08-03] MEDS ORDERED: CT SWABBABLE VALVE TRANS SET 1 EA INFUS.SET MC ONE (15:01)
--- NOTE | 2019-08-03 15:05 | NUR ---
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 PT AAOX4, VSS. RR EVEN & UNLABORED. DENIES CP, SOB, DIZZINESS @ THIS TIME. PT SEEN & EVAL'D BY DR. GRANGER. MEDICATED ORDERED. PT JAMES WELL. SON @ BS & WILL CONT TO MONITOR.
[2019-08-03 15:43] LABS: APPEARANCE,URINE Clear (CLEAR); BILIRUBIN,URINE Negative (NEGATIVE); BLOOD, URINE Trace-intact Ery/uL (NEGATIVE); COLOR,URINE Yellow (YELLOW); KETONES,URINE Negative (NEGATIVE); LEUKOCYTE ESTERASE ,URINE Trace (NEGATIVE); NITRITE, URINE Negative (NEGATIVE); PH,URINE 5.5 (5.0-8.0); PROTEIN,URINE Negative (NEGATIVE); UGLUCOSE Negative (NEGATIVE); UROBILINOGEN,URINE 0.2 EU/dL (0.2)
[2019-08-03 15:54] LABS: BACTERIA,URINE None seen /HPF (None Seen); WBC,URINE NONE SEEN /HPF (0-3)
[2019-08-03 16:46] VITALS: BP 148/80
== END 2019-08-03 16:46 | disposition home or self-care (01) ==
LOC: ER 14:07
DX: R10.13 Epigastric pain (principal); R42 Dizziness and giddiness; E11.9 Type 2 diabetes mellitus without complications; I10 Essential (primary) hypertension; M19.90 Unspecified osteoarthritis, unspecified site; F41.9 Anxiety disorder, unspecified; Z96.652 Presence of left artificial knee joint; Z95.818 Presence of other cardiac implants and grafts; Z98.890 Other specified postprocedural states; Z79.4 Long term (current) use of insulin; Z79.899 Other long term (current) drug therapy; Z79.84 Long term (current) use of oral hypoglycemic drugs
CPT/HCPCS: 36415; 74177; 80048; 80076; 80305; 81001; 83605; 83690; 85025; 87086; 93005; 96361; 96374; 96375; 99284; J2270; J2765; J7030; J7050; Q9967; 81000-TC

== ENCOUNTER 2021-05-12 17:19 | Emergency (ER) | payer MEDICARE, OTHER ==
[~2021-05-12] VITALS: Ht 157.5 cm; Wt 78.5 kg
[~2021-05-12 17:19] MED LIST changes: +GLIM1TAB18 PO; -GLIM1TAB2 PO; -OXYC-454 PO; +OXYC1TAB12 PO
--- NOTE | 2021-05-12 17:56 | NUR ---
TO ER BED 2, LLE PAIN AND SWELLING X 1 WEEK, AWAITING MD ANGEL
--- NOTE | 2021-05-12 18:11 | NUR ---
[employer] AT BEDSIDE
--- NOTE | 2021-05-12 18:18 | NUR ---
US AT BEDSIDE
[2021-05-12] MEDS ORDERED: CYCLOBENZAPRINE 10 MG TABLET ONE (18:35)
[2021-05-12] MEDS ORDERED: KETOROLAC TROMETHAMINE INJ 30 MG/ML VIAL ONE (18:35)
[2021-05-12] MEDS: KETOROLAC TROMETHAMINE INJ 30 MG/ML VIAL IM ONE (18:53)
[2021-05-12] MEDS: CYCLOBENZAPRINE 10 MG TABLET PO ONE (18:53)
--- NOTE | 2021-05-12 18:58 | NUR ---
TAKEN TO CT
--- NOTE | 2021-05-12 19:17 | NUR ---
REPORT GIVEN TO HERMAN JIN
[2021-05-12] MEDS ORDERED: OMEP20TA5 PO (20:37)
[2021-05-12] MEDS ORDERED: CYCL5TAB PO (20:37)
[2021-05-12] MEDS ORDERED: IBUP-1957 PO (20:37)
--- NOTE | 2021-05-12 20:45 | NUR ---
Patient discharged to home in stable condition. Written and verbal after care instructions given. Patient verbalizes understanding of instruction.
[2021-05-12 21:44] VITALS: BP 109/70
== END 2021-05-12 20:45 | disposition home or self-care (01) ==
LOC: ER 17:28
DX: M54.32 Sciatica, left side (principal); E11.9 Type 2 diabetes mellitus without complications; F41.9 Anxiety disorder, unspecified; M19.90 Unspecified osteoarthritis, unspecified site; Z98.890 Other specified postprocedural states; Z79.899 Other long term (current) drug therapy; Z79.84 Long term (current) use of oral hypoglycemic drugs
CPT/HCPCS: 72131; 93971; 96372; 99285; J1885

== ENCOUNTER 2022-04-22 20:59 | Emergency (ER) | payer MEDICARE, OTHER ==
[~2022-04-22] VITALS: Ht 157.5 cm; Wt 69.9 kg
[~2022-04-22 20:59] MED LIST changes: +CYCL5TAB PO; +IBUP-1957 PO; +OMEP20TA5 PO
--- NOTE | 2022-04-22 21:20 | NUR ---
TO ER BED 13. BIBSON C/O PAIN UPON URINATION SINCE YESTERDAY. PT IS ALERT AND ORIENTED. AMBULATORY WITH STEADY GAIT. BREATHING IS EVEN AND NONLABORED. CONNECTED TO MONITOR. AWAITING MD ANGEL
--- NOTE | 2022-04-22 21:28 | NUR ---
URINE SAMPLE COLLECTED AND SENT TO LAB
[2022-04-22 22:05] LABS: BASOPHILS % (AUTO) 0.3 % (0.0-2.0); EOSINOPHILS % (AUTO) 0.1 % (0.0-6.0); HEMATOCRIT 30 % (33-45); HEMOGLOBIN 9.7 g/dL (11.5-14.8); LYMPHOCYTES % (AUTO) 13.6 % (20.0-44.0); MEAN CORPUSCULAR HGB CONC 32 g/dl (31.0-36.0); MEAN CORPUSCULAR VOLUME 86 fL (82-100); MONOCYTES # (AUTO) 0.8 K/uL (0.1-1.30); MONOCYTES % (AUTO) 5.8 % (2.0-12.0); NEUTROPHILS # (AUTO) 11.6 K/uL (1.8-8.9); NEUTROPHILS % (AUTO) 80.2 % (43.0-81.0); PLATELET COUNT (AUTO) 166 K/uL (150-450); RED BLOOD CELL COUNT(AUTO) 3.48 MIL/uL (4.0-5.2); WHITE BLOOD COUNT (AUTO) 14.4 K/uL (4.3-11.0)
[2022-04-22 22:17] LABS: CALCIUM, SERUM 9.3 mg/dL (8.5-10.1); CARBON DIOXIDE 26 mmol/L (21-32); CHLORIDE 100 mmol/L (98-107); CREATININE 1.2 mg/dL (0.6-1.3); GLUCOSE 173 mg/dL (74-106); POTASSIUM 3.9 mmol/L (3.5-5.1); SODIUM SERUM 135 mmol/L (136-145); UREA NITROGEN, BLOOD 28 mg/dL (7-18)
[2022-04-22 22:34] LABS: BILIRUBIN,URINE NEGATIVE (NEGATIVE); COLOR,URINE YELLOW (YELLOW); LEUKOCYTE ESTERASE ,URINE LARGE (NEGATIVE); NITRITE, URINE POSITIVE (NEGATIVE); PH,URINE 5.5 (5.0-8.0); PROTEIN,URINE NEGATIVE (NEGATIVE); UGLUCOSE NEGATIVE (NEGATIVE); UROBILINOGEN,URINE 0.2 EU/dL (0.2)
[2022-04-22 22:39] LABS: BACTERIA,URINE Moderate /HPF (None Seen); SQUAMOUS EPITHELIAL CELL,UR Few /HPF (None Seen)
[2022-04-23] MEDS ORDERED: HYDROCODONE/APAP 5/325MG TABLET PO ONE (03:00)
[2022-04-23] MEDS ORDERED: HYDROCODONE/APAP 5/325MG TABLET ONE (03:06)
[2022-04-23] MEDS ORDERED: NITR100C6 PO (03:26)
[2022-04-23] MEDS ORDERED: NITROFURANTOIN/MONOHYDRATE MACROCRYSTALS 100 MG CAPSULE ONE (03:30)
[2022-04-23] MEDS ORDERED: NITROFURANTOIN/MONOHYDRATE MACROCRYSTALS 100 MG CAPSULE PO ONE (03:30)
--- NOTE | 2022-04-23 03:39 | NUR ---
Patient discharged to home in stable condition. Written and verbal after care instructions given. Patient verbalizes understanding of instruction.
[2022-04-23 03:58] VITALS: BP 116/70
== END 2022-04-23 03:58 | disposition home or self-care (01) ==
LOC: ER 21:12
DX: N39.0 Urinary tract infection, site not specified (principal); E11.9 Type 2 diabetes mellitus without complications; M19.90 Unspecified osteoarthritis, unspecified site; F41.9 Anxiety disorder, unspecified; Z96.652 Presence of left artificial knee joint; Z79.899 Other long term (current) drug therapy
CPT/HCPCS: 99284; 76856; 85025; 80048; 87077; 87086; 87186; 81001; 36415; 72192; A6403 ×3

== ENCOUNTER 2023-10-09 17:35 | Inpatient (IN) | payer MEDICARE, OTHER ==
[~2023-10-09] VITALS: Ht 152.4 cm; Wt 72.6 kg
[~2023-10-09 17:35] MED LIST changes: +NITR100C6 PO
[2023-10-09] MEDS ORDERED: AZITHROMYCIN 500 MG in IV D5W 250 ML IV ONE (18:30)
[2023-10-09] MEDS ORDERED: CEFTRIAXONE 1GM BAG (ER ONLY) 1 GM/50 ML PIGGYBACK IV ONE (18:30)
[2023-10-09 19:03] LABS: BASOPHILS % (AUTO) 0.2 % (0.0-2.0); EOSINOPHILS # (AUTO) 0.1 K/uL (0.0-0.7); HEMATOCRIT 38 % (33-45); HEMOGLOBIN 12.7 g/dL (11.5-14.8); LYMPHOCYTES # (AUTO) 2.4 K/uL (0.8-4.8); LYMPHOCYTES % (AUTO) 22.8 % (20.0-44.0); MEAN CORPUSCULAR HEMOGLOBIN 30 PG (26.0-33.0); MEAN CORPUSCULAR HGB CONC 34 g/dl (31.0-36.0); MEAN CORPUSCULAR VOLUME 90 fL (82-100); MONOCYTES # (AUTO) 0.6 K/uL (0.1-1.30); MONOCYTES % (AUTO) 5.7 % (2.0-12.0); NEUTROPHILS # (AUTO) 7.4 K/uL (1.8-8.9); NEUTROPHILS % (AUTO) 70.3 % (43.0-81.0); PLATELET COUNT (AUTO) 152 K/uL (150-450); RED BLOOD CELL COUNT(AUTO) 4.17 MIL/uL (4.0-5.2); RED CELL DISTRIBUTION WIDTH 13.8 % (11.5-15.0); WHITE BLOOD COUNT (AUTO) 10.5 K/uL (4.3-11.0)
[2023-10-09] MEDS ORDERED: CEFTRIAXONE 1GM BAG (ER ONLY) 50 ML IV ONE (19:11)
[2023-10-09 19:19] LABS: ALANINE AMINOTRANSFERASE 24 U/L (12-78); ALBUMIN 3.5 g/dL (3.4-5.0); ALKALINE PHOSPHATASE 156 U/L (46-116); ASPARTATE AMINOTRANSFERASE 21 U/L (15-37); BILIRUBIN,DIRECT 0.1 mg/dL (0.0-0.2); BILIRUBIN,TOTAL 0.2 mg/dL (0.2-1.0); CALCIUM, SERUM 9.7 mg/dL (8.5-10.1); CARBON DIOXIDE 27 mmol/L (21-32); TOTAL PROTEIN, SERUM 8.2 g/dL (6.4-8.2); UREA NITROGEN, BLOOD 14 mg/dL (7-18)
[2023-10-09 19:20] LABS: CHLORIDE 94 mmol/L (98-107); GLUCOSE 498 mg/dL (74-106); SODIUM SERUM 129 mmol/L (136-145)
[2023-10-09 19:21] LABS: INR 0.97 (0.91-1.10); PARTIAL THROMBOPLASTIN TIME 26.6 SEC (24.3-34.3); PROTHROMBIN TIME 10.3 SECS (9.2-11.1)
[2023-10-09] MEDS ORDERED: INSULIN REGULAR, HUMAN 100 UNIT/ML 10 ML VIAL SQ ONE (19:30)
[2023-10-09 19:32] LABS: LACTIC ACID 2.5 mmol/L (0.4-2.0)
[2023-10-09] MEDS ORDERED: INSULIN REGULAR, HUMAN 100 UNIT/ML 10 ML VIAL ONE (19:54)
[2023-10-09 19:58] LABS: APPEARANCE,URINE CLEAR (CLEAR); BILIRUBIN,URINE NEGATIVE (NEGATIVE); BLOOD, URINE NEGATIVE Ery/uL (NEGATIVE); COLOR,URINE YELLOW (YELLOW); KETONES,URINE NEGATIVE (NEGATIVE); LEUKOCYTE ESTERASE ,URINE NEGATIVE (NEGATIVE); NITRITE, URINE POSITIVE (NEGATIVE); PROTEIN,URINE NEGATIVE (NEGATIVE); UGLUCOSE 3+ mg/dL (NEGATIVE); UROBILINOGEN,URINE 0.2 EU/dL (0.2)
[2023-10-09 20:05] LABS: ADD URINE CULTURE YES; BACTERIA,URINE Rare /HPF (None Seen); RBC,URINE 0-2 /HPF (0-2); SQUAMOUS EPITHELIAL CELL,UR 0-2 /HPF (None Seen); WBC,URINE 0-2 /HPF (0-3)
[2023-10-09] MEDS ORDERED: ACETAMINOPHEN 325 MG TABLET PO PRN (22:30)
[2023-10-09] MEDS ORDERED: ONDANSETRON HCL/PF 4 MG/2 ML VIAL IVP PRN (22:30)
[2023-10-09] MEDS ORDERED: DEXTROSE 50%-WATER 50 ML DISP.SYRIN IV PRN (22:30)
[2023-10-09] MEDS ORDERED: *INSULIN REGULAR(HUMULIN R)HUM 100 UNIT/ML VIAL SQ PRN (22:30)
[2023-10-09] MEDS ORDERED: LORAZEPAM 1 MG TABLET PO SCH (22:30)
[2023-10-09] MEDS ORDERED: MORPHINE SULFATE INJ 2 MG/ML DISP.SYRIN IV PRN (22:30)
[2023-10-09] MEDS ORDERED: GUAIFENESIN/D-METHORPHAN HB 5 ML UDC PO PRN (22:30)
[2023-10-09] MEDS ORDERED: ALBUTEROL FS 2.5 MG/0.5 ML VIAL.NEB NEB PRN (22:30)
[2023-10-09] MEDS ORDERED: LORAZEPAM 1 MG TABLET ONE (23:14)
[2023-10-10] VITALS (10 sets, daily range): BP systolic 108–142; BP diastolic 82–90; TEMP 98.6–99.9; O2SAT 94–100
[2023-10-10] MEDS ORDERED: IPRATROPIUM/ALBUTEROL INHALER IH SCH
[2023-10-10] MEDS: IPRATROPIUM NEB FS 0.5 MG/2.5 ML AMPUL.NEB IH SCH ×4 (02:31→20:23)
[2023-10-10] MEDS: ALBUTEROL FS 2.5 MG/0.5 ML VIAL.NEB NEB SCH ×4 (02:31→20:23)
[2023-10-10] MEDS: BLOOD SUGAR DIAGNOSTIC 1 EACH STRIP IN SCH ×4 (06:03→17:05)
[2023-10-10] MEDS: INSULIN REGULAR, HUMAN 100 UNIT/ML 3 ML VIAL SQ PRN ×3 (06:09→17:05)
[2023-10-10 07:11] LABS: BASOPHILS % (AUTO) 0.2 % (0.0-2.0); EOSINOPHILS # (AUTO) 0.2 K/uL (0.0-0.7); EOSINOPHILS % (AUTO) 1.6 % (0.0-6.0); HEMATOCRIT 35 % (33-45); LYMPHOCYTES # (AUTO) 3.3 K/uL (0.8-4.8); LYMPHOCYTES % (AUTO) 28.5 % (20.0-44.0); MEAN CORPUSCULAR HEMOGLOBIN 31 PG (26.0-33.0); MEAN CORPUSCULAR HGB CONC 35 g/dl (31.0-36.0); MEAN CORPUSCULAR VOLUME 89 fL (82-100); MONOCYTES # (AUTO) 0.9 K/uL (0.1-1.30); MONOCYTES % (AUTO) 7.9 % (2.0-12.0); NEUTROPHILS # (AUTO) 7.1 K/uL (1.8-8.9); NEUTROPHILS % (AUTO) 61.8 % (43.0-81.0); PLATELET COUNT (AUTO) 138 K/uL (150-450); RED BLOOD CELL COUNT(AUTO) 3.87 MIL/uL (4.0-5.2); RED CELL DISTRIBUTION WIDTH 13.6 % (11.5-15.0); WHITE BLOOD COUNT (AUTO) 11.6 K/uL (4.3-11.0)
[2023-10-10 07:32] LABS: ALBUMIN 3.2 g/dL (3.4-5.0); BILIRUBIN,TOTAL 0.3 mg/dL (0.2-1.0); CALCIUM, SERUM 9.3 mg/dL (8.5-10.1); CREATININE 0.8 mg/dL (0.6-1.3); MAGNESIUM 1.9 mg/dL (1.8-2.4); PHOSPHORUS 3.2 mg/dL (2.5-4.9); POTASSIUM 3.2 mmol/L (3.5-5.1); TOTAL PROTEIN, SERUM 7.6 g/dL (6.4-8.2)
[2023-10-10] MEDS: INSULIN GLARGINE, 100 UNIT/ML CARTRIDGE SQ SCH ×2 (08:48→17:10)
[2023-10-10] MEDS ORDERED: HEPARIN SODIUM, PORCINE 5000 UNITS/1 ML VIAL SQ SCH (09:00)
[2023-10-10] MEDS ORDERED: CLOPIDOGREL BISULFATE 75 MG TABLET PO SCH (09:00)
[2023-10-10] MEDS: POTASSIUM CHLORIDE 20 MEQ TAB.PRT.SR PO SCH ×2 (10:23→11:29)
[2023-10-10] MEDS ORDERED: MEGE400O4 GT (11:22)
[2023-10-10] MEDS ORDERED: LIDO30AD10 TD (11:22)
[2023-10-10] MEDS ORDERED: METF-442 PO (11:22)
[2023-10-10] MEDS ORDERED: DICL100G26 TP (11:22)
[2023-10-10] MEDS ORDERED: [UNRECOGNIZED DRUG - OTHER] IH (11:22)
[2023-10-10] MEDS ORDERED: AZIL40TA PO (11:22)
[2023-10-10] MEDS ORDERED: LORA2TAB95 PO (11:22)
[2023-10-10] MEDS ORDERED: DEXL60CA3 PO (11:22)
[2023-10-10] MEDS ORDERED: NEBI5TAB8 PO (11:22)
[2023-10-10] MEDS ORDERED: MEGE40TA7 PO (11:22)
[2023-10-10] MEDS ORDERED: QULIPTA PO (11:22)
[2023-10-10] MEDS ORDERED: GABA-532 PO (11:22)
[2023-10-10] MEDS ORDERED: APIX5TAB PO (11:22)
[2023-10-10] MEDS ORDERED: LINA5TAB PO (11:22)
[2023-10-10] MEDS ORDERED: GEMTESA PO (11:22)
[2023-10-10] MEDS ORDERED: LINA290C PO (11:22)
[2023-10-10] MEDS ORDERED: OXYB-58 PO (11:22)
[2023-10-10] MEDS ORDERED: DULO30CA2 PO (11:22)
[2023-10-10] MEDS ORDERED: AMOX-430 PO (11:42)
[2023-10-10] MEDS ORDERED: PROM118S5 PO (11:42)
[2023-10-10] MEDS ORDERED: ALBU8.5H8 INH (11:42)
[2023-10-10] MEDS ORDERED: ATORVASTATIN 10 MG TABLET PO SCH (22:00)
== END 2023-10-10 20:55 | disposition home or self-care (01) | DRG 638 ==
LOC: ER 17:38 → MED 22:09
PROVIDERS: ADMIT Internal Medicine; ATTEND Nurse Practitioner Family
DX: E11.65 Type 2 diabetes mellitus with hyperglycemia (principal); E87.20 Acidosis, unspecified; F41.9 Anxiety disorder, unspecified; I25.10 Atherosclerotic heart disease of native coronary artery without angina pectoris; Z79.84 Long term (current) use of oral hypoglycemic drugs; J20.8 Acute bronchitis due to other specified organisms; E78.5 Hyperlipidemia, unspecified; M19.90 Unspecified osteoarthritis, unspecified site; I10 Essential (primary) hypertension; E87.6 Hypokalemia; Z99.3 Dependence on wheelchair; E86.9 Volume depletion, unspecified
CPT/HCPCS: 36415; 71045-TC; 80048-TC; 80053-TC; 80076-TC; 81001; 82962-TC; 83605-TC; 83735-TC; 83935-TC; 84100-TC; 84300-TC; 84484-TC; 85025-TC; 85730-TC; 87040-TC; 87086-TC; 94799-TC; A4223; G0378; J0456; J0696; J1644; J1815; J7060

== ENCOUNTER 2024-01-31 14:36 | Emergency (ER) | payer MEDICARE, OTHER ==
[~2024-01-31] VITALS: Ht 157.5 cm; Wt 95.3 kg
[~2024-01-31 14:36] MED LIST changes: +ALBU8.5H8 INH; +AMOX-430 PO; +APIX5TAB PO; +AZIL40TA PO; -CYCL5TAB PO; -DESV50TA PO; +DEXL60CA3 PO; +DICL100G26 TP; +DULO30CA2 PO; +GEMTESA PO; -GLIM1TAB18 PO; -IBUP-1957 PO; +LIDO30AD10 TD; -LORA2TAB PO; +LORA2TAB95 PO; +MEGE40TA7 PO; +NEBI5TAB8 PO; -NITR100C6 PO; -OLME20TA23 PO; -OMEP20TA5 PO; +OXYB-58 PO; -OXYC1TAB12 PO; +PROM118S5 PO; +QULIPTA PO; +[UNRECOGNIZED DRUG - OTHER] IH
[2024-01-31 16:20] LABS: BASOPHILS % (AUTO) 0.2 % (0.0-2.0); EOSINOPHILS # (AUTO) 0.1 K/uL (0.0-0.7); EOSINOPHILS % (AUTO) 0.7 % (0.0-6.0); HEMATOCRIT 39 % (33-45); HEMOGLOBIN 12.6 g/dL (11.5-14.8); LYMPHOCYTES # (AUTO) 3.4 K/uL (0.8-4.8); LYMPHOCYTES % (AUTO) 23.8 % (20.0-44.0); MEAN CORPUSCULAR HEMOGLOBIN 29 PG (26.0-33.0); MEAN CORPUSCULAR HGB CONC 33 g/dl (31.0-36.0); MEAN CORPUSCULAR VOLUME 90 fL (82-100); MONOCYTES # (AUTO) 1.3 K/uL (0.1-1.30); MONOCYTES % (AUTO) 8.8 % (2.0-12.0); NEUTROPHILS # (AUTO) 9.5 K/uL (1.8-8.9); NEUTROPHILS % (AUTO) 66.5 % (43.0-81.0); PLATELET COUNT (AUTO) 170 K/uL (150-450); RED BLOOD CELL COUNT(AUTO) 4.33 MIL/uL (4.0-5.2); RED CELL DISTRIBUTION WIDTH 14.3 % (11.5-15.0); WHITE BLOOD COUNT (AUTO) 14.3 K/uL (4.3-11.0)
[2024-01-31 16:33] LABS: CALCIUM, SERUM 9.3 mg/dL (8.5-10.1); CARBON DIOXIDE 22 mmol/L (21-32); CHLORIDE 93 mmol/L (98-107); CREATININE 1.9 mg/dL (0.6-1.3); POTASSIUM 3.6 mmol/L (3.5-5.1); SODIUM SERUM 129 mmol/L (136-145); UREA NITROGEN, BLOOD 22 mg/dL (7-18)
[2024-01-31 16:41] LABS: GLUCOSE 403 mg/dL (74-106)
[2024-01-31 17:20] LABS: ERYTHROCYTE SEDIMENTATION RATE 63 MM/HR (0-30)
[2024-01-31 17:33] LABS: C-REACTIVE PROTEIN 2.47 mg/dL (0.0-0.30)
[2024-01-31] MEDS: IV NS 0.9% 1,000 ML BAG IV ONE (17:45)
[2024-01-31] MEDS ORDERED: CEPH500C2 PO (19:21)
[2024-01-31 19:52] VITALS: BP 125/80; TEMP 98.5; O2SAT 99
[2024-01-31 19:59] LABS: APPEARANCE,URINE SLIGHTLY CLOUDY (CLEAR); BILIRUBIN,URINE NEGATIVE (NEGATIVE); BLOOD, URINE TRACE-INTA Ery/uL (NEGATIVE); COLOR,URINE YELLOW (YELLOW); KETONES,URINE NEGATIVE (NEGATIVE); LEUKOCYTE ESTERASE ,URINE 2+ (NEGATIVE); NITRITE, URINE POSITIVE (NEGATIVE); PH,URINE 5.5 (5.0-8.0); PROTEIN,URINE NEGATIVE (NEGATIVE); UGLUCOSE 2+ mg/dL (NEGATIVE); UROBILINOGEN,URINE 0.2 EU/dL (0.2)
[2024-01-31 20:10] LABS: ADD URINE CULTURE YES; BACTERIA,URINE Many /HPF (None Seen); RBC,URINE 0-2 /HPF (0-2); SQUAMOUS EPITHELIAL CELL,UR Moderate /HPF (None Seen); WBC,URINE 21-50 /HPF (0-3)
[2024-01-31 20:12] LABS: URIC ACID CRYSTALS,URINE Moderate /HPF (None Seen)
== END 2024-01-31 19:52 | disposition home or self-care (01) ==
LOC: ER 14:54
DX: E11.65 Type 2 diabetes mellitus with hyperglycemia (principal); L03.032 Cellulitis of left toe; M19.90 Unspecified osteoarthritis, unspecified site; F41.9 Anxiety disorder, unspecified; Z96.652 Presence of left artificial knee joint; Z79.899 Other long term (current) drug therapy
CPT/HCPCS: 99284; 96360; 73660; 85025; 80048; 85652; 81001; 36415; 82962; 86140; J7030

== ENCOUNTER 2024-04-01 13:40 | Inpatient (IN) | payer MEDICARE, OTHER ==
[~2024-04-01] VITALS: Ht 154.9 cm; Wt 91.2 kg
[~2024-04-01 13:40] MED LIST changes: +CEPH500C2 PO
[2024-04-01] MEDS: MORPHINE SULFATE INJ 2 MG/ML DISP.SYRIN IV ONE (14:45)
[2024-04-01] MEDS: IV NS 0.9% 1,000 ML BAG IV ONE (14:45)
[2024-04-01] MEDS: ONDANSETRON HCL/PF 4 MG/2 ML VIAL IVP ONE (14:45)
[2024-04-01] MEDS ORDERED: ONDANSETRON HCL/PF 4 MG/2 ML VIAL ONE (14:47)
[2024-04-01] MEDS ORDERED: MORPHINE SULFATE INJ 4 MG/ML DISP.SYRIN ONE (14:47)
[2024-04-01 15:02] LABS: BASOPHILS % (AUTO) 0.2 % (0.0-2.0); EOSINOPHILS # (AUTO) 0.3 K/uL (0.0-0.7); EOSINOPHILS % (AUTO) 2.1 % (0.0-6.0); HEMATOCRIT 21 % (33-45); HEMOGLOBIN 7.1 g/dL (11.5-14.8); LYMPHOCYTES # (AUTO) 3.5 K/uL (0.8-4.8); LYMPHOCYTES % (AUTO) 26.4 % (20.0-44.0); MEAN CORPUSCULAR HEMOGLOBIN 29 PG (26.0-33.0); MEAN CORPUSCULAR HGB CONC 33 g/dl (31.0-36.0); MEAN CORPUSCULAR VOLUME 86 fL (82-100); MONOCYTES # (AUTO) 1.2 K/uL (0.1-1.30); MONOCYTES % (AUTO) 8.9 % (2.0-12.0); NEUTROPHILS # (AUTO) 8.3 K/uL (1.8-8.9); NEUTROPHILS % (AUTO) 62.4 % (43.0-81.0); PLATELET COUNT (AUTO) 203 K/uL (150-450); RED BLOOD CELL COUNT(AUTO) 2.48 MIL/uL (4.0-5.2); RED CELL DISTRIBUTION WIDTH 14.6 % (11.5-15.0); WHITE BLOOD COUNT (AUTO) 13.3 K/uL (4.3-11.0)
[2024-04-01] MEDS ORDERED: LORA-258 PO (15:04)
[2024-04-01] MEDS ORDERED: TRAM50TA2 PO (15:04)
[2024-04-01 15:12] LABS: CALCIUM, SERUM 9.1 mg/dL (8.5-10.1); CARBON DIOXIDE 20 mmol/L (21-32); CHLORIDE 103 mmol/L (98-107); CREATININE 1.1 mg/dL (0.6-1.3); GLUCOSE 257 mg/dL (74-106); POTASSIUM 3.5 mmol/L (3.5-5.1); SODIUM SERUM 136 mmol/L (136-145); UREA NITROGEN, BLOOD 19 mg/dL (7-18)
[2024-04-01 15:19] LABS: ALANINE AMINOTRANSFERASE 11 U/L (12-78); ALBUMIN 2.4 g/dL (3.4-5.0); ALKALINE PHOSPHATASE 84 U/L (46-116); ASPARTATE AMINOTRANSFERASE 7 U/L (15-37); BILIRUBIN,DIRECT 0.1 mg/dL (0.0-0.2); BILIRUBIN,TOTAL 0.2 mg/dL (0.2-1.0); TOTAL PROTEIN, SERUM 6.9 g/dL (6.4-8.2)
[2024-04-01 15:20] LABS: INR 1.09 (0.91-1.10); PARTIAL THROMBOPLASTIN TIME 29.8 SEC (24.3-34.3); PROTHROMBIN TIME 11.5 SECS (9.2-11.1)
[2024-04-01] MEDS: CEFEPIME 1 GM in IV D5W 50 ML IV ONE (16:50)
[2024-04-01] MEDS: VANCOMYCIN 1 GM in IV D5W 250 ML IV ONE (17:28)
[2024-04-01] MEDS ORDERED: DEXTROSE 50%-WATER 50 ML DISP.SYRIN IV PRN (18:00)
[2024-04-01] MEDS ORDERED: ACETAMINOPHEN 325 MG TABLET PO PRN (18:00)
[2024-04-01] MEDS ORDERED: Z GUARD REMEDY 4 OZ OINT TP PRN (18:00)
[2024-04-01] MEDS ORDERED: ONDANSETRON HCL/PF 4 MG/2 ML VIAL IVP PRN (18:00)
[2024-04-01] MEDS ORDERED: MAG HYDROX/AL HYDROX/SIMETH 30 ML UDC PO PRN (18:00)
[2024-04-01 18:31] LABS: ANISOCYTOSIS 1+; EOSINOPHILS % (MANUAL) 1 % (0-4); LYMPHOCYTES % (MANUAL) 30 % (16-48); MONOCYTES % (MANUAL) 6 % (0-11.0); NEUTROPHILS % (MANUAL) 63 (42-76); PLATELET ESTIMATE ADEQUATE
[2024-04-01 20:05] VITALS: BP 139/71; TEMP 98.4; O2SAT 94
[2024-04-01] MEDS ORDERED: CEFEPIME 2 GM in IV D5W 100 ML IV SCH (21:00)
[2024-04-01] MEDS: PANTOPRAZOLE 40 MG VIAL IV SCH (21:08)
[2024-04-01] MEDS: BLOOD SUGAR DIAGNOSTIC 1 EACH STRIP IN SCH (21:40)
[2024-04-01] MEDS: INSULIN REGULAR, HUMAN 100 UNIT/ML 3 ML VIAL SQ PRN (21:41)
[2024-04-01] MEDS: INSULIN GLARGINE, 100 UNIT/ML CARTRIDGE SQ SCH (22:00)
[2024-04-01 22:02] LABS: HEMOGLOBIN 6.5 g/dL (11.5-14.8)
[2024-04-01] MEDS: LORAZEPAM 0.5 MG TABLET PO SCH (22:36)
[2024-04-01] MEDS: PREGABALIN 25 MG CAPSULE PO SCH (22:36)
[2024-04-01] MEDS ORDERED: OXYBUTYNIN CHLORIDE 5 MG TABLET ONE (23:22)
[2024-04-01] MEDS: OXYBUTYNIN CHLORIDE ER 5 MG TAB PO SCH (23:29)
[2024-04-02] VITALS (12 sets, daily range): BP systolic 100–136; BP diastolic 59–98; TEMP 97.7–99.5; O2SAT 93–97
[2024-04-02] MEDS: HYDROCODONE/APAP 5/325MG TABLET PO PRN (03:02)
[2024-04-02] MEDS: LINAGLIPTIN 5 MG TABLET PO SCH (09:50)
[2024-04-02] MEDS: LOSARTAN POTASSIUM 50 MG TABLET PO SCH (09:50)
[2024-04-02] MEDS: MORPHINE SULFATE INJ 2 MG/ML DISP.SYRIN IV PRN ×2 (10:37→16:04)
[2024-04-02 11:11] LABS: BASOPHILS % (AUTO) 0.4 % (0.0-2.0); EOSINOPHILS # (AUTO) 0.3 K/uL (0.0-0.7); EOSINOPHILS % (AUTO) 2.9 % (0.0-6.0); HEMATOCRIT 29 % (33-45); HEMOGLOBIN 9.9 g/dL (11.5-14.8); LYMPHOCYTES # (AUTO) 3.3 K/uL (0.8-4.8); LYMPHOCYTES % (AUTO) 28.4 % (20.0-44.0); MEAN CORPUSCULAR HEMOGLOBIN 29 PG (26.0-33.0); MEAN CORPUSCULAR HGB CONC 34 g/dl (31.0-36.0); MEAN CORPUSCULAR VOLUME 87 fL (82-100); MONOCYTES # (AUTO) 0.9 K/uL (0.1-1.30); MONOCYTES % (AUTO) 7.4 % (2.0-12.0); NEUTROPHILS # (AUTO) 7.1 K/uL (1.8-8.9); NEUTROPHILS % (AUTO) 60.9 % (43.0-81.0); PLATELET COUNT (AUTO) 170 K/uL (150-450); RED BLOOD CELL COUNT(AUTO) 3.39 MIL/uL (4.0-5.2); RED CELL DISTRIBUTION WIDTH 14.2 % (11.5-15.0); WHITE BLOOD COUNT (AUTO) 11.6 K/uL (4.3-11.0)
[2024-04-02 11:22] LABS: CARBON DIOXIDE 19 mmol/L (21-32); CHLORIDE 103 mmol/L (98-107); CREATININE 0.8 mg/dL (0.6-1.3); GLUCOSE 144 mg/dL (74-106); MAGNESIUM 1.7 mg/dL (1.8-2.4); PHOSPHORUS 2.9 mg/dL (2.5-4.9); SODIUM SERUM 135 mmol/L (136-145); UREA NITROGEN, BLOOD 16 mg/dL (7-18)
[2024-04-02] MEDS ORDERED: CT SWABBABLE VALVE TRANS SET 1 EA INFUS.SET MC ONE (13:28)
[2024-04-02] MEDS ORDERED: IV NS 0.9% 250 ML IV ONE (13:28)
[2024-04-02] MEDS ORDERED: IOHEXOL-300 100 ML VIAL IV ONE (13:28)
[2024-04-02] MEDS: CEFEPIME 1 GM in IV D5W 50 ML IV SCH (14:03)
[2024-04-02] MEDS ORDERED: VANCOMYCIN 1 GM in IV D5W 250ml IV SCH (16:00)
[2024-04-02] MEDS: VANCOMYCIN HCL 1.25 GM in IV D5W 250 ML IV SCH (16:05)
[2024-04-02] MEDS: ATORVASTATIN 10 MG TABLET PO SCH (17:30)
[2024-04-03 00:35] VITALS: BP 107/61; TEMP 99.5; O2SAT 95
[2024-04-03 07:30] VITALS: BP 119/67; TEMP 98.4; O2SAT 94
[2024-04-03 09:37] LABS: BASOPHILS % (AUTO) 0.1 % (0.0-2.0); EOSINOPHILS # (AUTO) 0.3 K/uL (0.0-0.7); EOSINOPHILS % (AUTO) 2.9 % (0.0-6.0); HEMATOCRIT 29 % (33-45); HEMOGLOBIN 9.5 g/dL (11.5-14.8); LYMPHOCYTES # (AUTO) 3.2 K/uL (0.8-4.8); MEAN CORPUSCULAR HEMOGLOBIN 29 PG (26.0-33.0); MEAN CORPUSCULAR HGB CONC 33 g/dl (31.0-36.0); MEAN CORPUSCULAR VOLUME 88 fL (82-100); MONOCYTES # (AUTO) 1.1 K/uL (0.1-1.30); MONOCYTES % (AUTO) 8.9 % (2.0-12.0); NEUTROPHILS # (AUTO) 7.3 K/uL (1.8-8.9); NEUTROPHILS % (AUTO) 61.1 % (43.0-81.0); PLATELET COUNT (AUTO) 191 K/uL (150-450); RED BLOOD CELL COUNT(AUTO) 3.29 MIL/uL (4.0-5.2); RED CELL DISTRIBUTION WIDTH 14.8 % (11.5-15.0)
[2024-04-03 09:45] LABS: CALCIUM, SERUM 8.7 mg/dL (8.5-10.1); CARBON DIOXIDE 20 mmol/L (21-32); CHLORIDE 104 mmol/L (98-107); CREATININE 1.1 mg/dL (0.6-1.3); GLUCOSE 200 mg/dL (74-106); POTASSIUM 3.8 mmol/L (3.5-5.1); SODIUM SERUM 134 mmol/L (136-145); UREA NITROGEN, BLOOD 18 mg/dL (7-18)
[2024-04-03 16:00] VITALS: BP 102/50; TEMP 99.7; O2SAT 93
[2024-04-03 20:00] VITALS: BP_SYST 118; BP_DIAS 53; BP_DIAS 56; TEMP 98.2; TEMP 98.4; O2SAT 93
[2024-04-03] MEDS: PANTOPRAZOLE 40 MG TABLET.DR PO SCH (21:01)
[2024-04-03] MEDS ORDERED: DEXTROSE 50%-WATER 50 ML DISP.SYRIN IV PRN (22:30)
[2024-04-04] MEDS: BLOOD SUGAR DIAGNOSTIC 1 EACH STRIP VI SCH (06:16)
[2024-04-04] MEDS: INSULIN REGULAR, HUMAN 100 UNIT/ML 3 ML VIAL SQ PRN (06:27)
[2024-04-04 07:26] LABS: CALCIUM, SERUM 8.3 mg/dL (8.5-10.1); POTASSIUM 3.7 mmol/L (3.5-5.1)
[2024-04-04 07:30] VITALS: BP 110/59; TEMP 98.3; O2SAT 96
[2024-04-04 20:00] VITALS: BP 100/60; TEMP 98.4; O2SAT 94; O2SAT 95
[2024-04-04] MEDS: INSULIN GLARGINE, 100 UNIT/ML CARTRIDGE SQ SCH (21:50)
[2024-04-04] MEDS: *INSULIN REGULAR(HUMULIN R)HUM 100 UNIT/ML VIAL SQ PRN (21:53)
[2024-04-05 07:41] LABS: CALCIUM, SERUM 8.1 mg/dL (8.5-10.1); CARBON DIOXIDE 21 mmol/L (21-32); CHLORIDE 104 mmol/L (98-107); CREATININE 1.1 mg/dL (0.6-1.3); GLUCOSE 236 mg/dL (74-106); POTASSIUM 3.8 mmol/L (3.5-5.1); SODIUM SERUM 137 mmol/L (136-145); UREA NITROGEN, BLOOD 18 mg/dL (7-18)
[2024-04-05 08:00] VITALS: BP 125/55; TEMP 97.7; O2SAT 100; O2SAT 95
[2024-04-05] MEDS: MAGNESIUM HYDROXIDE 30 ML UDC PO PRN (08:18)
[2024-04-05 16:00] VITALS: BP 110/49; TEMP 98.8; O2SAT 95
[2024-04-05 20:00] VITALS: BP 122/75; TEMP 97.8; O2SAT 95
[2024-04-06 07:36] LABS: CALCIUM, SERUM 7.7 mg/dL (8.5-10.1); CARBON DIOXIDE 21 mmol/L (21-32); CHLORIDE 102 mmol/L (98-107); CREATININE 1.1 mg/dL (0.6-1.3); GLUCOSE 321 mg/dL (74-106); POTASSIUM 3.9 mmol/L (3.5-5.1); SODIUM SERUM 132 mmol/L (136-145); UREA NITROGEN, BLOOD 16 mg/dL (7-18)
[2024-04-06 07:52] LABS: BASOPHILS % (AUTO) 0.2 % (0.0-2.0); EOSINOPHILS # (AUTO) 0.4 K/uL (0.0-0.7); EOSINOPHILS % (AUTO) 3.3 % (0.0-6.0); HEMATOCRIT 28 % (33-45); HEMOGLOBIN 9.3 g/dL (11.5-14.8); LYMPHOCYTES # (AUTO) 2.5 K/uL (0.8-4.8); LYMPHOCYTES % (AUTO) 18.9 % (20.0-44.0); MEAN CORPUSCULAR HEMOGLOBIN 29 PG (26.0-33.0); MEAN CORPUSCULAR HGB CONC 34 g/dl (31.0-36.0); MEAN CORPUSCULAR VOLUME 87 fL (82-100); MONOCYTES # (AUTO) 1.1 K/uL (0.1-1.30); MONOCYTES % (AUTO) 8.6 % (2.0-12.0); PLATELET COUNT (AUTO) 193 K/uL (150-450); RED BLOOD CELL COUNT(AUTO) 3.16 MIL/uL (4.0-5.2); RED CELL DISTRIBUTION WIDTH 14.8 % (11.5-15.0)
[2024-04-06 08:00] VITALS: BP 100/49; TEMP 98.8; O2SAT 95
[2024-04-06 16:00] VITALS: BP 122/67; TEMP 98.1; O2SAT 94
[2024-04-06] MEDS: CEFTRIAXONE 2 G in IV D5W 100 ML IV SCH (17:32)
[2024-04-06 20:00] VITALS: BP 131/91; TEMP 98.4; O2SAT 96
[2024-04-06] MEDS: INSULIN GLARGINE, 100 UNIT/ML CARTRIDGE SQ SCH (21:39)
[2024-04-07] MEDS: GUAIFENESIN/D-METHORPHAN HB 5 ML UDC PO PRN (04:20)
[2024-04-07 07:12] LABS: URIC ACID 5.2 mg/dL (2.6-7.2)
[2024-04-07 07:16] LABS: CALCIUM, SERUM 7.3 mg/dL (8.5-10.1); CREATININE 0.8 mg/dL (0.6-1.3); MAGNESIUM 1.9 mg/dL (1.8-2.4); PHOSPHORUS 1.5 mg/dL (2.5-4.9); POTASSIUM 3.6 mmol/L (3.5-5.1)
[2024-04-07 08:00] VITALS: BP 135/64; TEMP 98.8; O2SAT 94
[2024-04-07] MEDS: POTASSIUM PHOSPHATE MM 7.5 MMOL in IV NS 0.9% 100 ML IV SCH (08:51)
[2024-04-07] MEDS: CLOPIDOGREL BISULFATE 75 MG TABLET PO SCH (08:52)
[2024-04-07 09:10] LABS: BASOPHILS # (AUTO) 0.1 K/uL (0.0-0.2); BASOPHILS % (AUTO) 0.7 % (0.0-2.0); EOSINOPHILS # (AUTO) 0.4 K/uL (0.0-0.7); EOSINOPHILS % (AUTO) 3.4 % (0.0-6.0); HEMATOCRIT 28 % (33-45); HEMOGLOBIN 9.2 g/dL (11.5-14.8); LYMPHOCYTES # (AUTO) 2.9 K/uL (0.8-4.8); LYMPHOCYTES % (AUTO) 24.7 % (20.0-44.0); MEAN CORPUSCULAR HEMOGLOBIN 29 PG (26.0-33.0); MEAN CORPUSCULAR HGB CONC 33 g/dl (31.0-36.0); MEAN CORPUSCULAR VOLUME 87 fL (82-100); MONOCYTES # (AUTO) 1.1 K/uL (0.1-1.30); MONOCYTES % (AUTO) 8.8 % (2.0-12.0); NEUTROPHILS # (AUTO) 7.4 K/uL (1.8-8.9); NEUTROPHILS % (AUTO) 62.4 % (43.0-81.0); PLATELET COUNT (AUTO) 196 K/uL (150-450); RED BLOOD CELL COUNT(AUTO) 3.22 MIL/uL (4.0-5.2); RED CELL DISTRIBUTION WIDTH 14.7 % (11.5-15.0); WHITE BLOOD COUNT (AUTO) 11.9 K/uL (4.3-11.0)
[2024-04-07 16:00] VITALS: BP 108/53; TEMP 98.1; O2SAT 94
[2024-04-07] MEDS: K PHOS NEUTRAL 250 MG TABLET PO ONE (16:08)
[2024-04-07] MEDS: VANCOMYCIN 750 MG in IV D5W 250 ML IV SCH (19:06)
[2024-04-07 20:00] VITALS: BP 126/61; TEMP 98.6; O2SAT 95
[2024-04-07 20:56] VITALS: BP 126/61; TEMP 98.6; O2SAT 95
[2024-04-08 07:29] LABS: CALCIUM, SERUM 7.2 mg/dL (8.5-10.1); CREATININE 0.8 mg/dL (0.6-1.3); POTASSIUM 3.9 mmol/L (3.5-5.1)
[2024-04-08 08:00] VITALS: BP 133/69; TEMP 98.4; O2SAT 94
[2024-04-08] MEDS: INSULIN GLARGINE, 100 UNIT/ML CARTRIDGE SQ SCH ×2 (08:34→17:46)
[2024-04-08] MEDS ORDERED: VANC750F2 IV (11:13)
[2024-04-08] MEDS ORDERED: OXYC-128 PO (11:13)
[2024-04-08] MEDS ORDERED: CEFT2VIA14 IV (11:13)
[2024-04-08] MEDS ORDERED: PREG25CA PO (11:13)
[2024-04-08 16:00] VITALS: BP 109/57; TEMP 97.9; O2SAT 98
== END 2024-04-08 19:15 | disposition home health service (06) | DRG 871 ==
LOC: ER 13:48 → MED 16:43
PROVIDERS: ADMIT Nurse Practitioner Family; ATTEND Internal Medicine
PROC: 30233N1 Transfusion of Nonautologous Red Blood Cells into Peripheral Vein, Percutaneous Approach (ICD-10-PCS; principal; 2024-04-02)
DX: A41.9 Sepsis, unspecified organism (principal); K57.31 Diverticulosis of large intestine without perforation or abscess with bleeding; E44.0 Moderate protein-calorie malnutrition; L03.116 Cellulitis of left lower limb; M86.672 Other chronic osteomyelitis, left ankle and foot; L97.528 Non-pressure chronic ulcer of other part of left foot with other specified severity; E11.621 Type 2 diabetes mellitus with foot ulcer; R65.20 Severe sepsis without septic shock; D64.9 Anemia, unspecified; G89.29 Other chronic pain; E88.09 Other disorders of plasma-protein metabolism, not elsewhere classified; I25.10 Atherosclerotic heart disease of native coronary artery without angina pectoris; E11.51 Type 2 diabetes mellitus with diabetic peripheral angiopathy without gangrene; Z95.820 Peripheral vascular angioplasty status with implants and grafts; E11.69 Type 2 diabetes mellitus with other specified complication; Z86.711 Personal history of pulmonary embolism; Z79.01 Long term (current) use of anticoagulants; K64.9 Unspecified hemorrhoids; Z68.38 Body mass index [BMI] 38.0-38.9, adult
CPT/HCPCS: 36415; 71045-TC; 73660-TC; 73718-TC; 80048-TC; 80076-TC; 80202-TC; 82962-TC; 83605-TC; 83735-TC; 84100-TC; 84439-TC; 84443-TC; 84484-TC; 84550-TC; 85025-TC; 85027-TC; 85652-TC; 85730-TC; 86850-TC; 87040-TC; 93926-TC; A4223; G0378; J0692; J0696; J1815; J2270; J2405; J3370; J3371; J3490; J7030; J7040; J7050; J7060; P9016; Q9967

== ENCOUNTER 2024-11-12 16:04 | Emergency (ER) | payer MEDICARE, OTHER ==
[~2024-11-12] VITALS: Ht 152.4 cm; Wt 53.5 kg
[~2024-11-12 16:04] MED LIST changes: -ALBU8.5H8 INH; -AMOX-430 PO; +CEFT2VIA14 IV; -CEPH500C2 PO; -DEXL60CA3 PO; -DULO30CA2 PO; -GABA-532 PO; +LORA-258 PO; -LORA2TAB95 PO; +OXYC-128 PO; +PREG25CA PO; -PROM118S5 PO; -QULIPTA PO; +VANC750F2 IV
[2024-11-12 18:12] VITALS: BP 143/66; TEMP 97.9; O2SAT 99
== END 2024-11-12 18:17 | disposition home or self-care (01) ==
LOC: ER 16:08
DX: S01.81XA Laceration without foreign body of other part of head, initial encounter (principal); E11.9 Type 2 diabetes mellitus without complications; Z79.01 Long term (current) use of anticoagulants; Z79.02 Long term (current) use of antithrombotics/antiplatelets; Z79.84 Long term (current) use of oral hypoglycemic drugs; Z79.899 Other long term (current) drug therapy; Z96.652 Presence of left artificial knee joint; Z99.3 Dependence on wheelchair; W22.8XXA Striking against or struck by other objects, initial encounter; Y93.89 Activity, other specified; Y92.89 Other specified places as the place of occurrence of the external cause; Y99.8 Other external cause status
CPT/HCPCS: 70450-TC; 70486-TC; 72125-TC

== ENCOUNTER 2024-12-29 14:02 | Emergency (ER) | payer MEDICARE, OTHER ==
[~2024-12-29] VITALS: Ht 154.9 cm; Wt 77.1 kg
[2024-12-29] MEDS ORDERED: LIDOCAINE 5% (PATCH) 1 EA PATCH TP ONE (14:40)
[2024-12-29] MEDS ORDERED: ACETAMINOPHEN ES 500 MG TABLET ONE (14:40)
[2024-12-29] MEDS: LIDOCAINE 5% (PATCH) 1 EA PATCH TP SCH (14:49)
[2024-12-29 15:06] LABS: ALANINE AMINOTRANSFERASE 23 U/L (12-78); ALBUMIN 3.4 g/dL (3.4-5.0); ALKALINE PHOSPHATASE 159 U/L (46-116); ASPARTATE AMINOTRANSFERASE 30 U/L (15-37); BILIRUBIN,DIRECT 0.1 mg/dL (0.0-0.2); BILIRUBIN,TOTAL 0.2 mg/dL (0.2-1.0); CALCIUM, SERUM 9.3 mg/dL (8.5-10.1); CARBON DIOXIDE 21 mmol/L (21-32); CHLORIDE 102 mmol/L (98-107); CREATININE 1.4 mg/dL (0.6-1.3); LIPASE 98 U/L (16-77); POTASSIUM 5.3 mmol/L (3.5-5.1); SODIUM SERUM 133 mmol/L (136-145); TOTAL PROTEIN, SERUM 7.6 g/dL (6.4-8.2); UREA NITROGEN, BLOOD 31 mg/dL (7-18)
[2024-12-29] MEDS: ACETAMINOPHEN ES 500 MG TABLET PO ONE (15:06)
[2024-12-29 15:07] LABS: GLUCOSE 613 mg/dL (74-106)
[2024-12-29] MEDS ORDERED: KETOROLAC TROMETHAMINE 15 MG/ML VIAL ONE (15:07)
[2024-12-29] MEDS: KETOROLAC TROMETHAMINE 15 MG/ML VIAL IV ONE (15:09)
[2024-12-29 15:13] LABS: BASOPHILS % (AUTO) 0.2 % (0.0-2.0); EOSINOPHILS # (AUTO) 0.3 K/uL (0.0-0.7); EOSINOPHILS % (AUTO) 2.7 % (0.0-6.0); HEMATOCRIT 30 % (33-45); HEMOGLOBIN 9.5 g/dL (11.5-14.8); LYMPHOCYTES # (AUTO) 2.5 K/uL (0.8-4.8); LYMPHOCYTES % (AUTO) 25.8 % (20.0-44.0); MEAN CORPUSCULAR HEMOGLOBIN 26 PG (26.0-33.0); MEAN CORPUSCULAR HGB CONC 32 g/dl (31.0-36.0); MEAN CORPUSCULAR VOLUME 81 fL (82-100); MONOCYTES # (AUTO) 0.8 K/uL (0.1-1.30); MONOCYTES % (AUTO) 8.2 % (2.0-12.0); NEUTROPHILS # (AUTO) 6.1 K/uL (1.8-8.9); NEUTROPHILS % (AUTO) 63.1 % (43.0-81.0); PLATELET COUNT (AUTO) 151 K/uL (150-450); RED BLOOD CELL COUNT(AUTO) 3.69 MIL/uL (4.0-5.2); RED CELL DISTRIBUTION WIDTH 18.1 % (11.5-15.0); WHITE BLOOD COUNT (AUTO) 9.7 K/uL (4.3-11.0)
[2024-12-29] MEDS: INSULIN REGULAR, HUMAN 100 UNIT/ML 10 ML VIAL IV ONE (15:30)
[2024-12-29] MEDS: IV NS 0.9% 1,000 ML BAG IV ONE (16:05)
[2024-12-29] MEDS: LEVOFLOXACIN 750 MG /D5W 150ML 750 MG in PREMIX 1 EA IV SCH (16:05)
[2024-12-29] MEDS ORDERED: LEVO750T46 PO (17:46)
[2024-12-29 18:13] VITALS: BP 168/88; TEMP 97.6; O2SAT 95
[2024-12-29] MEDS: FAMOTIDINE/PF INJ 20 MG/2 ML VIAL IV ONE (18:13)
[2024-12-29] MEDS: PANTOPRAZOLE 40 MG VIAL IV ONE (18:13)
== END 2024-12-29 18:14 | disposition home or self-care (01) ==
LOC: ER 14:02
DX: J18.9 Pneumonia, unspecified organism (principal); R73.9 Hyperglycemia, unspecified; I25.10 Atherosclerotic heart disease of native coronary artery without angina pectoris; E11.51 Type 2 diabetes mellitus with diabetic peripheral angiopathy without gangrene; Z79.01 Long term (current) use of anticoagulants; Z79.02 Long term (current) use of antithrombotics/antiplatelets; Z79.4 Long term (current) use of insulin; Z79.84 Long term (current) use of oral hypoglycemic drugs; Z79.899 Other long term (current) drug therapy; Z99.3 Dependence on wheelchair; Z95.5 Presence of coronary angioplasty implant and graft; Z96.652 Presence of left artificial knee joint
CPT/HCPCS: 99285; 96365; 71250; 96375; 93005; 85025; 80048; 83690; 80076; 36415; 84484 ×2; 82962 ×3; J1885; J1815; J7030; A6253; A4223 ×2